=== PATIENT | female | born 1945 | race Two or more races ===

== ENCOUNTER 2016-05-22 14:27 | Emergency (ER) | payer MEDICARE, OTHER ==
[~2016-05-22] VITALS: Ht 175.3 cm; Wt 69.4 kg
[~2016-05-22 14:27] MED LIST: ASPI81TA2 PO; METO-304 PO; SIMV20TA2 PO; TRAM50TA2 PO
[2016-05-22] MEDS ORDERED: IV SET PRIMARY PUMP SET 1 EA INFUS.SET MC ONE (14:52)
[2016-05-22] MEDS ORDERED: IV NS 0.9% 500 ML IV ONE (14:52)
[2016-05-22] MEDS ORDERED: IV NS 0.9% 500 ML BAG IV ONE (15:00)
[2016-05-22 15:04] LABS: BASOPHILS # (AUTO) 0.2 /CMM (0.0-0.2); BASOPHILS % (AUTO) 2.8 % (0.0-2.0); DIFF TOTAL % 100 %; EOSINOPHILS # (AUTO) 0.3 /CMM (0.0-0.7); EOSINOPHILS % (AUTO) 4.2 % (0.0-6.0); HEMATOCRIT 44 % (33-45); HEMOGLOBIN 14.7 g/dL (11.5-14.8); LYMPHOCYTES # (AUTO) 1.5 /CMM (0.8-4.8); LYMPHOCYTES % (AUTO) 22.4 % (20.0-44.0); MEAN CORPUSCULAR HEMOGLOBIN 29 PG (26.0-33.0); MEAN CORPUSCULAR HGB CONC 34 g/dl (31.0-36.0); MEAN CORPUSCULAR VOLUME 85 fL (82-100); MONOCYTES # (AUTO) 0.6 /CMM (0.1-1.30); MONOCYTES % (AUTO) 9.3 % (2.0-12.0); NEUTROPHILS # (AUTO) 4.3 /CMM (1.8-8.9); NEUTROPHILS % (AUTO) 61.3 % (43.0-81.0); PLATELET COUNT (AUTO) 161 /CMM (150-450); RED BLOOD CELL COUNT(AUTO) 5.12 MIL/uL (4.0-5.2); WHITE BLOOD COUNT (AUTO) 6.9 K/uL (4.3-11.0)
[2016-05-22 15:15] LABS: ANION GAP 12 (5-14); CALCIUM, SERUM 9.4 mg/dL (8.5-10.1); CARBON DIOXIDE 28 mmol/L (21-32); CHLORIDE 103 mmol/L (98-107); CREATININE 0.9 mg/dL (0.6-1.3); GFR 62 mL/min (>60); GLUCOSE 78 mg/dL (74-106); POTASSIUM 3.2 mmol/L (3.5-5.1); SODIUM SERUM 140 mmol/L (136-145); UREA NITROGEN, BLOOD 19 mg/dL (7-18)
[2016-05-22 15:24] LABS: INR 1.04 (0.87-1.13); PROTHROMBIN TIME 10.9 SECS (9.5-12.7)
[2016-05-22 15:25] LABS: TROPONIN I < 0.017 ng/mL (0.00-0.056)
[2016-05-22 15:48] LABS: KETONES,URINE Negative (NEGATIVE); LEUKOCYTE ESTERASE ,URINE Negative (NEGATIVE); PH,URINE 6.5 (5.0-8.0)
[2016-05-22 15:50] LABS: ADD UA MICROSCOPIC YES
[2016-05-22 16:12] VITALS: BP 156/78
[2016-05-22 16:32] LABS: ADD URINE CULTURE NO; RBC,URINE 0-2 /HPF (0-2); WBC,URINE 0-2 /HPF (0-3)
[2016-05-22 16:43] LABS: THYROID STIMULATING HORMONE 2.278 uIU/mL (0.358-3.74)
== END 2016-05-22 16:22 | disposition home or self-care (01) ==
LOC: ER 14:30
DX: I16.0 Hypertensive urgency (principal); I10 Essential (primary) hypertension; Z79.82 Long term (current) use of aspirin; R79.1 Abnormal coagulation profile
CPT/HCPCS: 36415; 71010-TC; 80048-TC; 81000-TC; 84443-TC; 84484-TC; 85025-TC; 85730-TC; A4606; J7040; Z7610

== ENCOUNTER 2018-09-01 16:17 | Inpatient (IN) | payer MEDICARE, OTHER ==
[~2018-09-01] VITALS: Ht 154.9 cm; Wt 68.0 kg
[~2018-09-01 16:17] MED LIST changes: +ASPI-1169 PO; -ASPI81TA2 PO; -METO-304 PO; +METO-357 PO
--- NOTE | 2018-09-01 16:35 | NUR ---
PT RIVKA RA 89 "From Home SOB x 1wk", PT AAOX4, HOOKED TO CHIEF ENGINEERING DIVISION AND O2 VIA 2LPM, VS STABLE, KEPT RESTED AND COMFORTABLE, WILL CONTINUE TO MONITOR.
--- NOTE | 2018-09-01 16:40 | NUR ---
SEEN AND EXAMINED BY DR. ATKINS.
--- NOTE | 2018-09-01 17:00 | NUR ---
LABS DRAWNED AND SENT TO LAB.
[2018-09-01 17:25] LABS: BASOPHILS # (AUTO) 0.1 /CMM (0.0-0.2); BASOPHILS % (AUTO) 0.7 % (0.0-2.0); EOSINOPHILS % (AUTO) 5.5 % (0.0-6.0); HEMATOCRIT 38 % (33-45); HEMOGLOBIN 12.8 g/dL (11.5-14.8); LYMPHOCYTES # (AUTO) 1.3 /CMM (0.8-4.8); LYMPHOCYTES % (AUTO) 17.6 % (20.0-44.0); MEAN CORPUSCULAR HGB CONC 34 g/dl (31.0-36.0); MEAN CORPUSCULAR VOLUME 89 fL (82-100); MONOCYTES # (AUTO) 0.7 /CMM (0.1-1.30); MONOCYTES % (AUTO) 9.5 % (2.0-12.0); NEUTROPHILS # (AUTO) 4.8 /CMM (1.8-8.9); NEUTROPHILS % (AUTO) 66.7 % (43.0-81.0); PLATELET COUNT (AUTO) 121 /CMM (150-450); RED BLOOD CELL COUNT(AUTO) 4.22 MIL/uL (4.0-5.2); WHITE BLOOD COUNT (AUTO) 7.2 K/uL (4.3-11.0)
[2018-09-01 17:36] LABS: CALCIUM, SERUM 8.8 mg/dL (8.5-10.1); CARBON DIOXIDE 31 mmol/L (21-32); CHLORIDE 104 mmol/L (98-107); CREATININE 0.9 mg/dL (0.6-1.3); GLUCOSE 106 mg/dL (74-106); POTASSIUM 4.1 mmol/L (3.5-5.1); SODIUM SERUM 140 mmol/L (136-145); UREA NITROGEN, BLOOD 25 mg/dL (7-18)
[2018-09-01 17:49] LABS: ALANINE AMINOTRANSFERASE 22 U/L (12-78); ALBUMIN 3.7 g/dL (3.4-5.0); ALKALINE PHOSPHATASE 100 U/L (46-116); ASPARTATE AMINOTRANSFERASE 21 U/L (15-37); B-TYPE NATRIURETIC PEPTIDE 475 PG/ML (0-125); BILIRUBIN,DIRECT 0.1 mg/dL (0.0-0.2); BILIRUBIN,TOTAL 0.5 mg/dL (0.2-1.0)
--- NOTE | 2018-09-01 17:56 | NUR ---
324-1 CHF EXACERBATION ACCEPTING LUIS CRUZ
[2018-09-01] MEDS ORDERED: NITROGLYCERIN PACKET 1 GM PACKET TD ONE (18:00)
[2018-09-01] MEDS ORDERED: ASPIRIN 81 MG TAB.CHEW PO ONE (18:00)
[2018-09-01] MEDS ORDERED: FUROSEMIDE 40 MG/4 ML VIAL IV ONE (18:00)
[2018-09-01] MEDS ORDERED: NITROGLYCERIN PACKET 1 GM PACKET ONE (18:04)
[2018-09-01] MEDS ORDERED: ASPIRIN 81 MG TAB.CHEW ONE (18:04)
[2018-09-01] MEDS ORDERED: FUROSEMIDE 20 MG/2 ML VIAL ONE ×2 (18:04→18:05)
--- NOTE | 2018-09-01 19:27 | NUR ---
[facility].
[2018-09-01 20:00] VITALS: BP 111/68
--- NOTE | 2018-09-01 20:00 | NUR ---
RESEARCH STAFF MEMBERPRODUCT SAFETY PROFESSIONAL NOTES Admitted a 73yo female for CHF exacerbation. Patient came to unit via gurney, alert, oriented x 4, able to make needs known. Patient is short of breath on exertion, on O2 at 2LPM via nasal cannula. Tele monitor in place- sinus rhythm 69Patient denies smoking, drinking and use of recreational drugs. Patient reports that she uses a cane at home. Skin assessment done- multiple scabs noted due to scratching, pictures attached to chart. Oriented to call light- placed within easy reach. Bed in lowest locked position. Will continue to monitor accordingly.
[2018-09-01] MEDS ORDERED: TRAMADOL HCL 50 MG TABLET PO SCH (23:30)
[2018-09-01] MEDS ORDERED: GABA-534 PO (23:51)
[2018-09-01] MEDS ORDERED: AMLO1CAP8 PO (23:51)
[2018-09-01] MEDS ORDERED: LOSA1TAB9 PO (23:51)
[2018-09-01] MEDS ORDERED: POTA10CA43 PO (23:51)
[2018-09-01] MEDS ORDERED: FURO-144 PO (23:51)
[2018-09-02] VITALS: BP_SYST 108; BP_SYST 111; BP_DIAS 68
[2018-09-02] MEDS: TRAMADOL HCL 50 MG TABLET PO PRN ×2 (00:21→23:39)
--- NOTE | 2018-09-02 00:21 | NUR ---
RN NOTES Patient c/o generalized pain, 11/11. Ultram 50mg PO given as ordered. Will continue to monitor
[2018-09-02] MEDS ORDERED: MAGNESIUM HYDROXIDE 30 ML UDC PO PRN (01:00)
[2018-09-02] MEDS ORDERED: ONDANSETRON HCL/PF 4 MG/2 ML VIAL IVP PRN (01:00)
[2018-09-02] MEDS ORDERED: MAG HYDROX/AL HYDROX/SIMETH 30 ML UDC PO PRN (01:00)
[2018-09-02] MEDS ORDERED: ACETAMINOPHEN 325 MG TABLET PO PRN (01:00)
[2018-09-02] MEDS ORDERED: Z GUARD REMEDY 2 OZ OINT TP PRN (01:00)
[2018-09-02 04:00] VITALS: BP 103/67
--- NOTE | 2018-09-02 06:23 | NUR ---
RESIDENT HALL DIRECTOR CLOSING NOTES Patient resting in bed, alert, oriented x 4. Breathing even and unlabored. Not in any distress. No acute changes overnight. Tele monitor in place- sinus rhythm 65. All needs attended and met. Will endorse HUMBERTO to oncoming RN
[2018-09-02 06:56] LABS: APPEARANCE,URINE CLEAR (CLEAR); BILIRUBIN,URINE NEGATIVE (NEGATIVE); BLOOD, URINE TRACE-INTA Ery/uL (NEGATIVE); COLOR,URINE YELLOW (YELLOW); KETONES,URINE NEGATIVE (NEGATIVE); LEUKOCYTE ESTERASE ,URINE NEGATIVE (NEGATIVE); NITRITE, URINE NEGATIVE (NEGATIVE); PROTEIN,URINE NEGATIVE (NEGATIVE); UGLUCOSE NEGATIVE (NEGATIVE); UROBILINOGEN,URINE 0.2 EU/dL (0.2)
--- NOTE | 2018-09-02 07:30 | NUR ---
MS RN RECEIVED ON BED, AWAKE,ALERT,ORIENTED X4,NOT IN ANY FORM OF DISTRESS, RESPIRATIONS EVEN AND UNLABORED,NO SOB NOTED, LUNGS ARE DIMINISHED, ABDOMEN SOFT,POSITIVE BOWEL SOUNDS,DENIES PAIN AT THIS TIME, WILL MONITOR PATIENT'S CONDITION.
[2018-09-02 07:39] LABS: BACTERIA,URINE Few /HPF (None Seen); CALCIUM OXALATE CRYSTALS,UR Few /HPF (None Seen); WBC,URINE 0-2 /HPF (0-3)
[2018-09-02 07:46] LABS: BASOPHILS % (AUTO) 0.6 % (0.0-2.0); EOSINOPHILS % (AUTO) 5.5 % (0.0-6.0); HEMATOCRIT 36 % (33-45); HEMOGLOBIN 12.3 g/dL (11.5-14.8); LYMPHOCYTES # (AUTO) 1.4 /CMM (0.8-4.8); LYMPHOCYTES % (AUTO) 23.4 % (20.0-44.0); MEAN CORPUSCULAR HGB CONC 34 g/dl (31.0-36.0); MEAN CORPUSCULAR VOLUME 89 fL (82-100); MONOCYTES # (AUTO) 0.7 /CMM (0.1-1.30); MONOCYTES % (AUTO) 10.9 % (2.0-12.0); NEUTROPHILS # (AUTO) 3.6 /CMM (1.8-8.9); NEUTROPHILS % (AUTO) 59.6 % (43.0-81.0); PLATELET COUNT (AUTO) 106 /CMM (150-450); RED BLOOD CELL COUNT(AUTO) 4.04 MIL/uL (4.0-5.2)
[2018-09-02 08:00] VITALS: BP 126/74
[2018-09-02 08:09] LABS: CHOLESTEROL 124 mg/dL (<200); HDL CHOLESTEROL 38 mg/dL (40-60); LDL 76 mg/dL (0-99); TRIGLYCERIDES 73 mg/dL (30-150)
[2018-09-02 08:12] LABS: CALCIUM, SERUM 8.2 mg/dL (8.5-10.1); CARBON DIOXIDE 30 mmol/L (21-32); CHLORIDE 104 mmol/L (98-107); CREATININE 0.8 mg/dL (0.6-1.3); GLUCOSE 87 mg/dL (74-106); MAGNESIUM 2.2 mg/dL (1.8-2.4); PHOSPHORUS 3.3 mg/dL (2.5-4.9); POTASSIUM 3.4 mmol/L (3.5-5.1); SODIUM SERUM 143 mmol/L (136-145); UREA NITROGEN, BLOOD 21 mg/dL (7-18)
[2018-09-02] MEDS: ASPIRIN 81 MG TAB.CHEW PO SCH (08:35)
[2018-09-02] MEDS: LOSARTAN/HCTZ 50-12.5MG/ 1 EA TABLET PO SCH (08:36)
[2018-09-02] MEDS: AMLODIPINE BESYLATE 5 MG TABLET PO SCH (08:36)
[2018-09-02] MEDS: GABAPENTIN 300 MG CAPSULE PO SCH (08:37)
[2018-09-02] MEDS: FUROSEMIDE 40 MG TABLET PO SCH (08:37)
[2018-09-02] MEDS ORDERED: METOPROLOL SUCCINATE 50 MG TAB.SR.24H PO SCH (09:00)
--- NOTE | 2018-09-02 09:10 | NUR ---
ms cage breakfast served,due meds given,tolerated well.
--- NOTE | 2018-09-02 10:07 | NUR ---
WOUND CARE CONSULT: PT IS AMBULATORY AND CONTINENT WITH CURRENT CASSIDY SCORE OF 19. PT HAS DRY SCABS AND SCRATCH LEDESMA ON HER BODY, PRESENT ON ADMISSION. PT STATES THAT SHE PICKS AT HER SKIN. DEFER TO MD FOR PICKING BEHAVIOR. WILL SEE PRN.
[2018-09-02] MEDS ORDERED: POTASSIUM CHLORIDE 20 MEQ TAB.PRT.SR PO SCH (11:00)
--- NOTE | 2018-09-02 11:00 | NUR ---
ms niles was seen by dr. hamilton ferro/ orders made and carried out.
[2018-09-02] MEDS: methylPREDNISolone SOD SUCC 125 MG/2ML VIAL IV SCH ×3 (11:05→21:00)
[2018-09-02] MEDS: ENOXAPARIN SODIUM 40 MG/0.4 ML DISP.SYRIN SQ SCH (11:06)
[2018-09-02] MEDS: IPRATROPIUM NEB FS 0.5 MG/2.5 ML AMPUL.NEB NEB SCH ×3 (11:14→23:28)
[2018-09-02] MEDS: LEVALBUTEROL HCL NEB 1.25 MG/0.5 ML VIAL.NEB IH SCH ×3 (11:14→23:28)
--- NOTE | 2018-09-02 12:00 | NUR ---
Social service consult requested by Lyn Velazquez NP because pt. is elderly and lives alone with limited resources. Pt. is a 73 year old female who was admitted to [facility] for CHF exacerbation. SW met with pt. at bedside. Pt. was sitting up on her bed and is alert and cooperative throughout the assessment. Pt. was oriented x 4. Pt. states that she rents a bedroom in a single-family home from a family located at [address] [place] [address]. Her cell phone number is . Pt. receives SSI benefits of $890 per month and has [employer] insurance. Pt.s emergency contact listed on her face sheet is her son Noble Fiore , but pt. states that he is not very reliable. Pt. denies current alcohol, drugs, and cigarette use. Pt. states she stopped drinking alcohol 10 years ago when it started affecting her health. Pt. denies a history of psychiatric diagnosis, but states that she has experienced some symptoms of depression due to her current living and health situation. Pt. feels lonely and expresses sadness about having to leave her two cats behind once she moves into an assisted living facility. SW assessed for risk of suicide and homicide ideation and pt. responded she has some suicidal ideation at times but pt. does not have a plan to hurt herself or the means to act on these thoughts. Pt. stated, I know I will get through this. At this time, pt. is not a risk to harm self or others. SW encouraged pt. to speak to her primary doctor regarding her depressive symptoms, and pt. agreed. Pt. states that she is not interested in anti-depressive medication but is interested in counseling and talk therapy. LUCERO will provide the following counseling referrals to pt.: [facility] [address] [facility] [place] [address]. and Counseling [phone]. [facility] [id number]. . Pt. also requested spiritual counseling support during her hospital stay, and LUCERO arranged for Rev. Dinah Le from the [facility] [place] [id number] [facility] [place] [address] , to visit pt. for spiritual and emotional support. Pt. would like to speak with Case Management to discuss placement options. SW notified Geospatial Intelligence Analyst Chema with the aforementioned information. No other services are requested at this time. SW is available if needed.
[2018-09-02 16:00] VITALS: BP 117/74
--- NOTE | 2018-09-02 18:53 | NUR ---
ms rn on bed, no distress noted.
--- NOTE | 2018-09-02 19:41 | NUR ---
MS SHIRA INITIAL NOTES RECEIVED REPORT FROM AM NURSE EMANUEL AND CHECKED THE PATIENT . SHE'S AWAKE AND ALERT SITTING IN HER BED WHILE TRYNG TO CALL SOMEONE USING HER CELLPHONE. NO SOB NOTED. RESPIRATION EVEN AND NON-LABORED. NOT IN ANY ACUTE DISTRESS NOTED. RE-ORIENTED HOW TO USED THE CALL LIGHT AND ENCOURAGE HER TO USE IF SHE NEEDS SOME HELP OR NEEDS ASSIST. PT UNDERSTOOD WELL. ON 02 AT 2 LITERS VIA NASAL CANULA. KEPT HER WARM AND COMFORTABLE AT ALL TIMES. PLACE CALL LIGHT AT REACH. WILL CONTINUE MONITORING.
[2018-09-02 20:00] VITALS: BP 118/70
[2018-09-02 20:09] VITALS: BP 118/70
[2018-09-02] MEDS: SIMVASTATIN 20 MG TABLET PO SCH (21:07)
--- NOTE | 2018-09-02 21:40 | NUR ---
MS SHIRA NOTES ROUTINE MEDS GIVEN ORDERED. SNACKS ALSO SERVED. WILL CONTINUE MONITORING. PLACE CALL LIGHT AT REACH.
--- NOTE | 2018-09-02 23:41 | NUR ---
MS SHIRA NOTES PT ON BREATHING TREATMENT AND ASKING FOR PAIN MEDICATION FOR GENERALIZED PAIN. ULTRAM PO GIVEN ORDERED. EDUCATE ABOUT POSSIBLE SIDE EFFECT AND PT UNDERSTOOD WELL. KEPT HER WARM AND COMFORTABLE AT ALL TIMES.
--- NOTE | 2018-09-03 00:48 | NUR ---
MS SHIRA NOTES RE- ASSESSMENT PT RESTING COMFORTABLY IN BED WITHOUT ANY ACUTE DISTRESS NOTED. RESPIRATION EVEN AND NON-LABORED. WILL CONTINUE MONITORING. PLACE CALL LIGHT AT REACH.
[2018-09-03] MEDS: ZOLPIDEM TARTRATE 5 MG TABLET PO PRN ×2 (01:24→21:06)
--- NOTE | 2018-09-03 01:26 | NUR ---
ms director cost notes pt woke up and asking some crackers and milk she stated she's hungry and needs sleep medication. Ambien 5 mg po given as well her crackers and milk . she 's aware that she needs to watch her fluids and possible side effect of sleep medication. bed alarm set for pt safety. will continue monitoring.
--- NOTE | 2018-09-03 03:00 | NUR ---
MS SHIRA NOTES PT ASLEEP AFTER SLEEP MEDS GIVEN NO SIGNS OF ANY DISTRESS NOTED. KEPT HER WARM AND COMFORTABLE AT ALL TIMES. WILL CONTINUE MONITORING. PLACE CALL LIGHT AT REACH.
--- NOTE | 2018-09-03 05:00 | NUR ---
MS SHIRA NOTES PT WOKE UP AND USED THE BEDSIDE COMODE THEN ACCIDENTALLY IV LINE PULLED OUT . NO BLEEDING NOTED. PT STATED SHE'S HARD STICK SO WE USED THE ACCU-VEIN TO RE INSERTED A NEW ONE THAT PLACE ON HER RIGHT THUMB GAUGE 24 SECURED WITH TAPE . ROUTINE MEDS ALSO GIVEN ORDERED. WILL CONTINUE MONITORING. PLACE CALL LIGHT AT REACH.
[2018-09-03] MEDS: methylPREDNISolone SOD SUCC 125 MG/2ML VIAL IV SCH ×3 (05:25→21:22)
[2018-09-03 06:34] LABS: CALCIUM, SERUM 8.9 mg/dL (8.5-10.1); CARBON DIOXIDE 31 mmol/L (21-32); CHLORIDE 103 mmol/L (98-107); CREATININE 0.9 mg/dL (0.6-1.3); GLUCOSE 204 mg/dL (74-106); POTASSIUM 3.6 mmol/L (3.5-5.1); SODIUM SERUM 143 mmol/L (136-145); UREA NITROGEN, BLOOD 23 mg/dL (7-18)
[2018-09-03] MEDS: LEVALBUTEROL HCL NEB 1.25 MG/0.5 ML VIAL.NEB IH SCH ×3 (07:51→23:22)
[2018-09-03] MEDS: IPRATROPIUM NEB FS 0.5 MG/2.5 ML AMPUL.NEB NEB SCH ×3 (07:51→23:22)
[2018-09-03 08:00] VITALS: BP 128/88
--- NOTE | 2018-09-03 08:00 | NUR ---
ms rn received on bed, awake,alert,oriented x4,not in any form of distress,respirations even and unlabored,no sob noted, lungs are clear,abdomen soft,positive bowel sounds, denies pain at this time, will monitor patient's condition.
[2018-09-03 08:36] LABS: ABG BASE EXCESS 1.1 mmol/L; ABG OXYGEN SATURATION 95.8 % (92.0-98.5); ABG PCO2 41.4 mmHg (35.0-45.0); ABG PH 7.413 (7.350-7.450); ABG PO2 85.9 mmHg (75.0-100.0); AaDO2 14.3 mmHg; COHb 0.8 % (0.5-1.5); MetHb 0.6 % (0.0-1.5); O2Hb 94.5 % (94.0-97.0); SITE, ABG Right Brachial; VENT MODE, BG room air
[2018-09-03] MEDS: AMLODIPINE BESYLATE 5 MG TABLET PO SCH (08:53)
[2018-09-03] MEDS: GABAPENTIN 300 MG CAPSULE PO SCH (08:53)
[2018-09-03] MEDS: FUROSEMIDE 40 MG TABLET PO SCH (08:53)
[2018-09-03] MEDS: ASPIRIN 81 MG TAB.CHEW PO SCH (08:53)
[2018-09-03] MEDS: ENOXAPARIN SODIUM 40 MG/0.4 ML DISP.SYRIN SQ SCH (08:54)
[2018-09-03] MEDS: LOSARTAN/HCTZ 50-12.5MG/ 1 EA TABLET PO SCH (08:57)
--- NOTE | 2018-09-03 09:30 | NUR ---
ms cage breakfast served,due meds given,tolerated well.
[2018-09-03 10:04] LABS: BASOPHILS % (AUTO) 0.1 % (0.0-2.0); HEMATOCRIT 39 % (33-45); HEMOGLOBIN 13.3 g/dL (11.5-14.8); LYMPHOCYTES # (AUTO) 0.6 /CMM (0.8-4.8); LYMPHOCYTES % (AUTO) 8.2 % (20.0-44.0); MEAN CORPUSCULAR HGB CONC 34 g/dl (31.0-36.0); MEAN CORPUSCULAR VOLUME 88 fL (82-100); MONOCYTES # (AUTO) 0.3 /CMM (0.1-1.30); MONOCYTES % (AUTO) 3.3 % (2.0-12.0); NEUTROPHILS # (AUTO) 6.6 /CMM (1.8-8.9); NEUTROPHILS % (AUTO) 88.4 % (43.0-81.0); PLATELET COUNT (AUTO) 105 /CMM (150-450); WHITE BLOOD COUNT (AUTO) 7.5 K/uL (4.3-11.0)
--- NOTE | 2018-09-03 11:00 | NUR ---
ms niles was seen by karolina chan w/ orders made and carried out.
[2018-09-03 16:00] VITALS: BP 129/85
--- NOTE | 2018-09-03 19:00 | NUR ---
ms rn patient on bed,spoke w/ heel caser, for dc plan in am.
--- NOTE | 2018-09-03 19:30 | NUR ---
MS SHIRA INITIAL NOTES RECEIVED REPORT FROM AM NURSE AND CHECKED PT IN BED AWAKE AND ALERT WATCHING TV AT THIS TIME. NEW IV LINE INSERTED ON HER LEFT HAND GAUGE 22 .NO SIGNS OF ANY SOB NOTED NOT IN ANY ACUTE DISTRESS NOTED. PT ASKING FOR HER SLEEP MEDICATION BY 9PM. DENIES ANY PAIN OR ANY DISCOMFORT. KEPT HER WARM AND COMFORTABLE AT ALL TIMES,. PLACE CALL LIGHT AT REACH. WILL CONTINUE MONITORING.
[2018-09-03 20:00] VITALS: BP 131/81
[2018-09-03] MEDS: SIMVASTATIN 20 MG TABLET PO SCH (21:06)
--- NOTE | 2018-09-03 21:30 | NUR ---
MS SECURITY CLERK NOTES ROUTINE MEDS GIVEN WELL HER SLEEP MEDICATION PER PT REQUESTED. LIGHT SNACKS ALSO SERVED. EDUCATE PT FOR POSSIBLE SIDE EFFECT OF HER SLEEP MEDICATION AND PT AWARE AND UNDERSTOOD WELL. KEPT HER WARM AND COMFORTABLE AT ALL TIMES. BED IN LOW AND LOCK IN POSITION. PLACE CALL LIGHT AT REACH. WILL CONTINUE MONITORING.
--- NOTE | 2018-09-03 23:57 | NUR ---
RT NOTE PT CHARTING DOES NOT LOAD. TRIED MANY TIMES WITH DIFFERENT COMPUTERS. PT BREATHING TX GIVEN AT 2325, SPO2 89% HR 88. PT WAS FOUND WITHOUT OXYGEN ON AND WHEEZING. PT TOOK OF THE TX 5 MINUTES LATER CLAIMING IT GIVES HER A SORE THROAT. SHE WAS PLACED BACK ON HER NC 2L. PT IS STILL WHEEZING. RN AWARE.
--- NOTE | 2018-09-04 | NUR ---
MS SODA WORKER NOTES PT SLEEPING COMFORTABLY IN BED WITHOUT ANY ACUTE DISTRESS NOTED. BREATHING EVEN AND NON-LABORED. KEPT HER WARM AND COMFORTABLE AT ALL TIMES. WILL CONTINUE MONITORING. PLACE CALL LIGHT AT REACH.
--- NOTE | 2018-09-04 02:00 | NUR ---
MS TECHNICAL ACCOUNT MANAGER NOTES PT REMAIN ASLEEP.
--- NOTE | 2018-09-04 05:00 | NUR ---
MS INSULATOR TECHNICIAN NOTES PT WOKE UP AND ASKING FOR SOME JELO AND JUICE. . PT DENIES ANY PAIN OR ANY DISCOMFORT. JELO AND JUICE SERVED. SOLUMEDROL WILL ADMINISTERED BY ANOTHER NURSE ORDERED LORNA IVP.
[2018-09-04] MEDS: methylPREDNISolone SOD SUCC 125 MG/2ML VIAL IV SCH ×2 (05:40→13:00)
--- NOTE | 2018-09-04 07:04 | NUR ---
MS JANITOR SUPERVISOR CLOSING NOTES PT REMAINS RESTING IN BED AWAKE AND ALERT , STABLE LORNA THE NIGHT AND SLEPT WELL. NO SIGNS OF ANY DISTRESS NOTED. ALL DUE MEDS GIVEN AND ALL NEEDS MET. KEPT HER WARM AND COMFORTABLE AT ALL TIMES. STILL WITH 02 AT 2 LITERS VIA NASAL CANULA. ON SEMI FOWLERS POSITION WITH SIDE RAILS X2 UP . PLACE CALL LIGHT AT REACH. WILL ENDORSE TO AM NURSE FOR CONTINUITY OF CARE.
--- NOTE | 2018-09-04 07:20 | NUR ---
MS/RN OPENING NOTE THE PATIENT ALERT AND ORIENTED X4. RECEIVING OXYGEN AT 2L/MIN VIA NASAL CANNULA AND DENIES SOB. RESPIRATION REGULAR AND UNLABORED. DENIES PAIN. THE PATIENT IS IN NO APPARENT DISTRESS. LEFT HAND G 22 PATENT AND SALINE LOCKED. BED LOW AND LOCKED. SIDE RAILS UP X3. CALL LIGHT WITHIN REACH. WILL CONTINUE TO MONITOR.
[2018-09-04] MEDS: LEVALBUTEROL HCL NEB 1.25 MG/0.5 ML VIAL.NEB IH SCH (08:01)
[2018-09-04] MEDS: IPRATROPIUM NEB FS 0.5 MG/2.5 ML AMPUL.NEB NEB SCH (08:01)
[2018-09-04 08:11] VITALS: BP 134/84
[2018-09-04] MEDS: ASPIRIN 81 MG TAB.CHEW PO SCH (08:18)
[2018-09-04] MEDS: GABAPENTIN 300 MG CAPSULE PO SCH (08:18)
[2018-09-04] MEDS: AMLODIPINE BESYLATE 5 MG TABLET PO SCH (08:19)
[2018-09-04] MEDS: FUROSEMIDE 40 MG TABLET PO SCH (08:19)
[2018-09-04] MEDS: TRAMADOL HCL 50 MG TABLET PO PRN (08:19)
[2018-09-04] MEDS: ENOXAPARIN SODIUM 40 MG/0.4 ML DISP.SYRIN SQ SCH (08:28)
[2018-09-04 09:00] VITALS: BP 109/64
[2018-09-04] MEDS: LOSARTAN/HCTZ 50-12.5MG/ 1 EA TABLET PO SCH (09:00)
[2018-09-04] MEDS ORDERED: PRED50TA PO (10:37)
[2018-09-04] MEDS ORDERED: LEVA1.2524 IH (10:37)
[2018-09-04] MEDS ORDERED: IPRA0.2S9 NEB (10:37)
--- NOTE | 2018-09-04 13:30 | NUR ---
MS/RN NOTE PATIENT ALERT AND ORIENTED X4. RECEIVING OXYGEN AT 2L/MIN AND DENIES SOB. RESPIRATION REGULAR AND UNLABORED. DENIES PAIN. DISCHARGE EDUCATION PROVIDED AND THE PATIENT VERBALIZED UNDERSTANDING. THE PATIENT IS GETTING PICKED UP BY [facility]. THE PATIENT IS IN STABLE CONDITION.
== END 2018-09-04 13:35 | DRG 291 ==
LOC: ER 16:18 → TELE 18:51 → MED 09-02 10:33
PROVIDERS: ADMIT Nurse Practitioner Acute Care; ATTEND Nurse Practitioner Acute Care
DX: I11.0 Hypertensive heart disease with heart failure (principal); J96.01 Acute respiratory failure with hypoxia; D68.59 Other primary thrombophilia; J45.901 Unspecified asthma with (acute) exacerbation; I27.20 Pulmonary hypertension, unspecified; I50.33 Acute on chronic diastolic (congestive) heart failure; G89.4 Chronic pain syndrome; E78.5 Hyperlipidemia, unspecified; E66.9 Obesity, unspecified; J45.909 Unspecified asthma, uncomplicated; Z79.82 Long term (current) use of aspirin; Z87.891 Personal history of nicotine dependence; Z95.1 Presence of aortocoronary bypass graft; Z95.2 Presence of prosthetic heart valve; Z68.28 Body mass index [BMI] 28.0-28.9, adult; D64.9 Anemia, unspecified; K74.60 Unspecified cirrhosis of liver
CPT/HCPCS: 36415; 36600; 71045-TC; 71250-TC; 80048-TC; 80061-TC; 80076-TC; 81000-TC; 82728-TC; 82803-TC; 83540-TC; 83735-TC; 83880; 84100-TC; 84439-TC; 84443-TC; 84484-TC; 85025-TC; 85730-TC; 87081-TC; 93307-TC; 93970-TC; 94799-TC; 97116-TC; 97530-TC; G0378; J1650; J1940; J2930

== ENCOUNTER 2018-10-15 13:00 | Outpatient (CLI) | payer MEDICARE, OTHER ==
[~2018-10-15 13:00] MED LIST changes: +AMLO1CAP8 PO; +FURO-144 PO; +GABA-534 PO; +IPRA0.2S9 NEB; +LEVA1.2524 IH; +LOSA1TAB9 PO; +POTA10CA43 PO; +PRED50TA PO
== END 2018-10-15 23:59 | disposition home or self-care (01) ==
LOC: WOU 13:00
PROVIDERS: ATTEND Surgery
DX: Z51.89 Encounter for other specified aftercare (principal); R26.81 Unsteadiness on feet; G89.4 Chronic pain syndrome; E66.9 Obesity, unspecified; Z68.32 Body mass index [BMI] 32.0-32.9, adult; I11.0 Hypertensive heart disease with heart failure; I50.9 Heart failure, unspecified; Z79.899 Other long term (current) drug therapy
CPT/HCPCS: G0463

== ENCOUNTER 2019-02-19 03:28 | Inpatient (IN) | payer MEDICARE, OTHER ==
[~2019-02-19] VITALS: Ht 162.6 cm; Wt 76.2 kg
[~2019-02-19 03:28] MED LIST changes: -AMLO1CAP8 PO; +AMLO1CAP92 PO
[2019-02-19 04:10] LABS: BASOPHILS % (AUTO) 0.5 % (0.0-2.0); EOSINOPHILS % (AUTO) 3.3 % (0.0-6.0); HEMATOCRIT 39 % (33-45); HEMOGLOBIN 12.7 g/dL (11.5-14.8); LYMPHOCYTES # (AUTO) 1.3 /CMM (0.8-4.8); LYMPHOCYTES % (AUTO) 21.2 % (20.0-44.0); MEAN CORPUSCULAR HGB CONC 33 g/dl (31.0-36.0); MEAN CORPUSCULAR VOLUME 93 fL (82-100); MONOCYTES # (AUTO) 0.5 /CMM (0.1-1.30); MONOCYTES % (AUTO) 8.9 % (2.0-12.0); NEUTROPHILS % (AUTO) 66.1 % (43.0-81.0); PLATELET COUNT (AUTO) 206 /CMM (150-450); RED BLOOD CELL COUNT(AUTO) 4.17 MIL/uL (4.0-5.2)
[2019-02-19 04:14] LABS: CALCIUM, SERUM 8.9 mg/dL (8.5-10.1); CARBON DIOXIDE 31 mmol/L (21-32); CHLORIDE 106 mmol/L (98-107); CREATININE 0.7 mg/dL (0.6-1.3); GLUCOSE 105 mg/dL (74-106); POTASSIUM 3.1 mmol/L (3.5-5.1); SODIUM SERUM 144 mmol/L (136-145); UREA NITROGEN, BLOOD 17 mg/dL (7-18)
--- NOTE | 2019-02-19 04:16 | NUR ---
[facility]. TO ER BED 6. AAOX3. NO RESP DISTRESS NOTED. BROUGHT IN FOR PSYCH EVAL. PER PA REPORT, PT WAS VERBALLY AGGRESSIVE AT THE FACILITY AND TRIES TO LEAVE. PER PA, PT DOES NOT LIKE IT THERE. PA ALSO REPORTS THAT PAIN IS HAVING GEN BODY PAIN, UPON ASKING PT SHE STATES THAT SHE HAS BEEN HAVING PAIN FOR A LONG TIME. MD WAS AT BEDSIDE FOR EVAL ORDERS RECEIVED AND NOTED. BLOOD DRAWN BY TECH. URINE COLLECTED AND SENT TO LAB
[2019-02-19 04:26] LABS: ALANINE AMINOTRANSFERASE 22 U/L (12-78); ALBUMIN 2.7 g/dL (3.4-5.0); ALCOHOL, BLOOD < 3 mg/dL (0-0); ALKALINE PHOSPHATASE 123 U/L (46-116); ASPARTATE AMINOTRANSFERASE 25 U/L (15-37); BILIRUBIN,DIRECT 0.3 mg/dL (0.0-0.2); BILIRUBIN,TOTAL 0.9 mg/dL (0.2-1.0); TOTAL PROTEIN, SERUM 6.3 g/dL (6.4-8.2)
[2019-02-19 04:32] LABS: SALICYLATE < 0.2 mg/dL (2.8-20.0)
[2019-02-19 04:33] LABS: ACETAMINOPHEN 0 ug/ml (10-30)
[2019-02-19 04:33] LABS: APPEARANCE,URINE Clear (CLEAR); BILIRUBIN,URINE SMALL (NEGATIVE); BLOOD, URINE Trace-intact Ery/uL (NEGATIVE); COLOR,URINE Dark (YELLOW); KETONES,URINE Negative (NEGATIVE); LEUKOCYTE ESTERASE ,URINE Small (NEGATIVE); NITRITE, URINE Negative (NEGATIVE); PROTEIN,URINE 30 mg/dl (NEGATIVE); UGLUCOSE Negative (NEGATIVE)
--- NOTE | 2019-02-19 04:52 | NUR ---
ART ON THE WAY FOR EVAL
[2019-02-19 05:04] LABS: BACTERIA,URINE Many /HPF (None Seen); SQUAMOUS EPITHELIAL CELL,UR Moderate /HPF (None Seen); WBC,URINE TOO NUMEROUS TO COUN /HPF (0-3)
--- NOTE | 2019-02-19 06:05 | NUR ---
NOTED PT HR IN 130'S. MADE AWARE, RECEIVED ORDER TO DO EKG.
[2019-02-19] MEDS ORDERED: CEFTRIAXONE 1GM BAG (ER ONLY) 50 ML IV ONE ×2 (06:22→06:30)
[2019-02-19] MEDS ORDERED: METOPROLOL TARTRATE 50 MG TABLET ONE (06:23)
[2019-02-19] MEDS ORDERED: ASPIRIN EC 81 MG TABLET.DR PO ONE (06:30)
[2019-02-19] MEDS ORDERED: FUROSEMIDE 40 MG/4 ML VIAL IV ONE (06:30)
[2019-02-19] MEDS ORDERED: METOPROLOL TARTRATE 50 MG TABLET PO ONE (06:30)
[2019-02-19] MEDS ORDERED: IV NS 0.9% 1,000 ML BAG IV ONE (06:30)
[2019-02-19] MEDS ORDERED: ASPIRIN 81 MG TAB.CHEW ONE (06:52)
[2019-02-19] MEDS ORDERED: POTASSIUM CHLORIDE 20 MEQ TAB.PRT.SR PO ONE ×2 (06:52→07:00)
[2019-02-19] MEDS ORDERED: FUROSEMIDE 40 MG/4 ML VIAL ONE (06:52)
--- NOTE | 2019-02-19 07:13 | NUR ---
REPORT GIVEN TO ARA CHEN.
--- NOTE | 2019-02-19 07:37 | NUR ---
PAGED ANDREA FOR ADMISSION
--- NOTE | 2019-02-19 08:32 | NUR ---
REPORT GIVEN TO CASEY CHEN FOR HUMBERTO.
[2019-02-19] MEDS ORDERED: MULT-439 PO (08:57)
[2019-02-19] MEDS ORDERED: IPRA3AMP23 IH (08:57)
[2019-02-19] MEDS ORDERED: NEUTRA-PHOS PO (08:57)
[2019-02-19] MEDS ORDERED: PANT40TA2 PO (08:57)
[2019-02-19] MEDS ORDERED: PROT946L PO (08:57)
[2019-02-19] MEDS ORDERED: MAG30ORA PO (08:57)
[2019-02-19] MEDS ORDERED: DICL100G16 TP (08:57)
[2019-02-19] MEDS ORDERED: RIFA200T2 PO (08:57)
[2019-02-19 09:15] VITALS: BP 131/91
--- NOTE | 2019-02-19 09:15 | NUR ---
TRANSFERRED TO ROOM 115-1 VIA ACLS PROTOCOL. NO DISTRESS NOTED.
--- NOTE | 2019-02-19 09:20 | NUR ---
BANK WORKER NOTE PATIENT CAME IN VIA GURNEY. ALERT AND ORIENTED X3. C/C WAS BEING AGGRESSIVE AND TRYING TO LEAVE [facility]. PER ER NURSE, PATIENT WAS TACHYCARDIC AND THEY DID AN EKG. EKG SHOWED NEW ONSET OF AFIB. PATIENT CONNECTED TO OUR TELE MONITOR, AFIB AT 102. PATIENT HAS NO COMPLAINS OF ANY PAIN NOR SOB AT THIS TIME. SHE IS ON ROOM AIR. PER PATIENT, SHE CAN WALK BUT WITH ASSISTANCE. HAS A LEFT HAND #22 SALINE LOCKED. K DUR WAS GIVEN TO REPLACE K OF 3.2 IN ER. WAITING FOR ADMITTING ORDERS FROM ANDREA MOSES DNP. BED LOCKED AND IN LOWEST POSITION. SITTER AT BEDSIDE.CALL LIGHT WITHIN REACH. WILL CONTINUE TO MONITOR
[2019-02-19] MEDS ORDERED: ZOLPIDEM TARTRATE 5 MG TABLET PO PRN (11:00)
[2019-02-19] MEDS ORDERED: MAGNESIUM HYDROXIDE 30 ML UDC PO PRN (11:00)
[2019-02-19] MEDS ORDERED: Z GUARD REMEDY 2 OZ OINT TP PRN (11:00)
[2019-02-19] MEDS ORDERED: MAG HYDROX/AL HYDROX/SIMETH 30 ML UDC PO PRN (11:00)
[2019-02-19] MEDS ORDERED: ACETAMINOPHEN 325 MG TABLET PO PRN (11:00)
[2019-02-19] MEDS ORDERED: ONDANSETRON HCL/PF 4 MG/2 ML VIAL IVP PRN (11:00)
[2019-02-19] MEDS: ENOXAPARIN SODIUM 40 MG/0.4 ML DISP.SYRIN SQ SCH (11:46)
[2019-02-19 12:00] VITALS: BP 138/82
--- NOTE | 2019-02-19 13:01 | NUR ---
RN NOTE PAGED DR MASON REGARDING THE NEW ADMISSION [address] MASON, DR GRAVES IS COVERING FOR HIM TODAY. PAGED DR GRAVES, PER HE DID HIS ROUNDS IN THE AM AND ASKED ME TO CALL [facility] TO LET THE WEEKEND PSYCH DOCTOR TO MAKE SURE TO DO ROUNDS ON THIS PATIENT. CALLED [facility] TO LET THEM KNOW, TALKED TO
[2019-02-19 16:00] VITALS: BP 124/99
[2019-02-19] MEDS: HYDROCODONE/APAP 5/325MG 1 EACH TABLET PO PRN ×2 (16:55→21:18)
[2019-02-19] MEDS: K PHOS NEUTRAL 250 MG TABLET PO SCH (17:26)
[2019-02-19] MEDS: PROSOURCE / PROSTAT (PYXIS) 30 ML UDC PO SCH (17:26)
--- NOTE | 2019-02-19 18:41 | NUR ---
RN CLOSING NOTE PATIENT IN BED, SITTER AT BEDSIDE. HAD A COMPLAIN OF GENERALIZED PAIN, WAS GIVEN NORCO. PATIENT ATE DINNER. ON ROOM AIR, NO SOB NOTED. PATIENT STILL ON AFIB, ANDREA AWARE. PATIENT HAS LOVENOX AND METROPOLOL. CARDIAC CONSULT STILL PENDING. HAS A LEFT HAND #22 SALINE LOCKED. BED LOCKED AND IN LOWEST POSITION. CALL LIGHT WITHIN REACH. WILL ENDORSE TO NOC SHIFT FOR HUMBERTO
[2019-02-19 20:00] VITALS: BP 129/98
[2019-02-19] MEDS: METOPROLOL TARTRATE 25 MG TABLET PO SCH (20:08)
--- NOTE | 2019-02-19 20:49 | NUR ---
RECORDER HELPER GRAVITY PROSPECTING NOTES RECEIVED PT ON BED. A/O X3. ON ROOM AIR NO RESPIRATORY DISTRESS NOTED. ON TELE MONITOR AFIB 106. IV ACCESS ON LEFT HAND G 22 SL. WITH 1 TO 1 SITTER. HEAD OF BED ELEVATED. SIDE RAILS UP. CALL LIGHT WITHIN REACH. BED ALARM ON. WILL MONITOR PT CLOSELY.
[2019-02-19] MEDS ORDERED: DICLOFENAC TOPICAL 100 GM GEL..GM. TP SCH ×2 (21:00)
[2019-02-20] VITALS (8 sets, daily range): BP systolic 113–149; BP diastolic 77–108
--- NOTE | 2019-02-20 04:02 | NUR ---
DURABLE MEDICAL EQUIPMENT REPAIRER NOTES BED BATH DONE. PT AGITATED, RESTLESS AND SHOUTING. SITTER AT BEDSIDE.
--- NOTE | 2019-02-20 05:33 | NUR ---
WORD PROCESSOR NOTES 0500 PT PULLED OUT IV ACCESS. RN TRIED INSERTING ANOTHER ACCESS , PT REFUSED, VERY AGITATED AND RESTLESS. CHARGE NURSE INFORMED. 0510 CALLED PHARMACY REGARDING ROCEPHIN AT AM AND AWAITING MIDLINE ORDER.
--- NOTE | 2019-02-20 06:47 | NUR ---
PIPER INSTALLER NOTES MULTIPLE BLOOD DRAW ATTEMPTS PER WEIGHT CLERK. WILL F/U IN AM ONCE PT HAS MIDLINE.
[2019-02-20] MEDS: CEFTRIAXONE 1 G in IV D5W 50 ML IV SCH (07:00)
--- NOTE | 2019-02-20 07:00 | NUR ---
REGULATORY ATTORNEY NOTES ROCEPHIN IV NOT GIVEN, AWAITING MIDLINE.
--- NOTE | 2019-02-20 07:05 | NUR ---
UNABLE TO ADMINISTER ROCEPHIN AT 0700 BECAUSE NO IV SITE IS AVAILABLE. WAITING FOR MIDLINE INSERTION
--- NOTE | 2019-02-20 07:11 | NUR ---
RESEARCH CHIEF ENGINEER NOTES NO ACUTE CHANGES NOTED DURING THE SHIFT. NO RESPIRATORY DISTRESS NOTED. WILL ENDORSE TO THE AM NURSE FOR CONTINUITY OF CARE.
--- NOTE | 2019-02-20 07:35 | NUR ---
RN OPENING NOTES RECEIVED PATIENT AWAKE AND ALERT RESTING IN BED COMFORTABLY. SHE IS AOX3, VERBAL, AND ON BEDREST. TELE MONITOR SHOWING UNCONTROLLED AFIB AT 120 BPM. SHE IS ON RA, TOLERATING WELL, SHOWS NO S/SX OF RESP DISTRESS OR SOB, CHEST RISES AND FALLS EVENLY. PT HAS NO IV SITE, REMOVED BY PT LAST NIGHT, AWAITING MIDLINE INSERTION. SHE IS ON CARDIAC DIET. SAFETY MEASURES HAVE BEEN IMPLEMENTED, CALL LIGHT IS WITHIN REACH, BED IS IN LOWEST AND LOCKED POSITION, SIDE RAILS UP X2, WILL CONTINUE TO MONITOR FOR ANY CHANGES.
[2019-02-20] MEDS: PANTOPRAZOLE 40 MG TABLET.DR PO SCH (07:58)
[2019-02-20] MEDS: MULTIVIT W/MINERALS 1 TAB TABLET PO SCH (08:45)
[2019-02-20] MEDS: FUROSEMIDE 40 MG TABLET PO SCH (08:45)
[2019-02-20] MEDS: K PHOS NEUTRAL 250 MG TABLET PO SCH ×2 (08:45→17:16)
[2019-02-20] MEDS: GABAPENTIN 300 MG CAPSULE PO SCH (08:45)
[2019-02-20] MEDS: PROSOURCE / PROSTAT (PYXIS) 30 ML UDC PO SCH ×2 (08:50→17:16)
[2019-02-20] MEDS: METOPROLOL TARTRATE 25 MG TABLET PO SCH ×4 (08:50→17:19)
[2019-02-20] MEDS ORDERED: ASPIRIN 81 MG TAB.CHEW PO SCH (09:00)
[2019-02-20] MEDS ORDERED: PANTOPRAZOLE 40 MG TABLET.DR PO SCH (09:00)
[2019-02-20] MEDS: HYDROCODONE/APAP 5/325MG 1 EACH TABLET PO PRN (09:33)
[2019-02-20 10:25] LABS: BASOPHILS % (AUTO) 0.7 % (0.0-2.0); EOSINOPHILS % (AUTO) 0.3 % (0.0-6.0); HEMATOCRIT 39 % (33-45); HEMOGLOBIN 12.3 g/dL (11.5-14.8); LYMPHOCYTES # (AUTO) 0.8 /CMM (0.8-4.8); LYMPHOCYTES % (AUTO) 12.6 % (20.0-44.0); MEAN CORPUSCULAR HGB CONC 32 g/dl (31.0-36.0); MEAN CORPUSCULAR VOLUME 94 fL (82-100); MONOCYTES # (AUTO) 0.4 /CMM (0.1-1.30); MONOCYTES % (AUTO) 6.5 % (2.0-12.0); NEUTROPHILS # (AUTO) 5.3 /CMM (1.8-8.9); NEUTROPHILS % (AUTO) 79.9 % (43.0-81.0); PLATELET COUNT (AUTO) 206 /CMM (150-450); RED BLOOD CELL COUNT(AUTO) 4.12 MIL/uL (4.0-5.2); WHITE BLOOD COUNT (AUTO) 6.6 K/uL (4.3-11.0)
[2019-02-20 10:52] LABS: ALBUMIN 2.9 g/dL (3.4-5.0); BILIRUBIN,TOTAL 1.1 mg/dL (0.2-1.0); CALCIUM, SERUM 9.1 mg/dL (8.5-10.1); CREATININE 0.8 mg/dL (0.6-1.3); MAGNESIUM 1.8 mg/dL (1.8-2.4); PHOSPHORUS 4.2 mg/dL (2.5-4.9); POTASSIUM 3.5 mmol/L (3.5-5.1); THYROID STIMULATING HORMONE 21.964 uIU/mL (0.358-3.74); TOTAL PROTEIN, SERUM 6.2 g/dL (6.4-8.2)
[2019-02-20] MEDS: ENOXAPARIN SODIUM 40 MG/0.4 ML DISP.SYRIN SQ SCH (10:57)
[2019-02-20] MEDS ORDERED: LIDOCAINE 1% INJ 50 ML MDV IJ STA (12:41)
[2019-02-20] MEDS: WARFARIN SODIUM 5 MG TABLET PO SCH (17:18)
--- NOTE | 2019-02-20 19:04 | NUR ---
RN CLOSING NOTES PATIENT IS RESTING IN BED COMFORTABLY AT THIS TIME, DENIES ANY PAIN OR DISCOMFORT. NO ACUTE CHANGES OCCURRED THROUGHOUT THE SHIFT, VITAL SIGNS STABLE, PT NEEDS HAVE BEEN MET. PATIENT TOLERATING RA WELL, CHEST RISES AND FALLS EVENLY. BAT BOY/GIRL AT BEDSIDE. SAFETY MEASURES HAVE BEEN IMPLEMENTED, CALL LIGHT IS WITHIN REACH, BED IS IN LOWEST AND LOCKED POSITION, SIDE RAILS UP X2, PT HAS BEEN ENDORSED TO NIGHTSHIFT RN FOR CONTINUITY OF CARE.
--- NOTE | 2019-02-20 19:10 | NUR ---
rn initial notes: received report from day rn , pt on 1:1 sitter, per report on 5150 hold which will on 02/22/19 at 0525am. pt awaiting to be seen by dr clark for psych eval. pt a/o x3 with periodic episode of confusion, emotional, wants morphine, but per son do not give any iv pain meds as pt was on high doses of iv narcotics which make the pt hallucinate and confused. pt on tele afib uncontrolled hr 112. pt has ericka midline, s/p insertion today. safety precautions for fall initiated, call light in reach, will continue monitoring pt.
[2019-02-20] MEDS ORDERED: VANCOMYCIN 500 MG VIAL ONE (22:10)
[2019-02-20] MEDS ORDERED: PIPERACILLIN /TAZOBACTAM 3.375 G VIAL IV ONE (22:10)
--- NOTE | 2019-02-20 22:47 | NUR ---
rn notes: recheck pt's bp, rigth arm, rsult is 142/103, hr 113. recheck on left arm, reading is 113/108, hr 110. pt c/o generalized pain, offered norco, but pt refused, stated she wants morphine. son has instructions not to give any iv pain meds as pt received high doses of pain meds in another hospital which makes the pt hallucinate and become confused. relayed situation to md managing partner digital content marketing [place], per md t/o to give hydralazine 10 mg po once now. t/o read back, verified, and carried out.
[2019-02-20] MEDS ORDERED: hydrALAZINE HCL 10 MG TABLET PO ONE (23:00)
[2019-02-21] VITALS (8 sets, daily range): BP systolic 125–152; BP diastolic 51–101
[2019-02-21] MEDS: METOPROLOL TARTRATE 25 MG TABLET PO SCH ×4 (00:03→17:26)
--- NOTE | 2019-02-21 00:43 | NUR ---
rn notes: per dr clark, nobody told him about psych consult, but will see the pt in am.
[2019-02-21] MEDS: HYDROCODONE/APAP 5/325MG 1 EACH TABLET PO PRN ×2 (01:18→21:00)
--- NOTE | 2019-02-21 01:18 | NUR ---
prn norco: pt requesting for norco, c/o generalized pain 11/11, prn norco administered at this time, will continue to monitor and reassess pt
[2019-02-21] MEDS: CEFTRIAXONE 1 G in IV D5W 50 ML IV SCH (06:08)
--- NOTE | 2019-02-21 06:48 | NUR ---
RN CLOSING NOTES: PT IN BED, REMAINS EMOTIONAL, DENIES ANY PLAN OF HURTING HERSELF. SITTER AT BED SIDE. IV ACCESS REMAINS PATENT AND FLUSHING WELL, INFUSING WITH ROCEPHIN IV ATB ORDERED. AWAITING TO BE SEEN BY BOB MILLAN. 5150 HOLD WILL ON 02/22/19 AT 0525AM. VS REMAINS STABLE, NEEDS ATTENDED. SAFETY PRECAUTIONS FOR FALL REMAINS ENGAGED, CALL LIGHT IN REACH, WILL ENDORSE TO DAY RN FOR CONTINUITY OF CARE.
[2019-02-21 07:11] LABS: BASOPHILS # (AUTO) 0.1 /CMM (0.0-0.2); BASOPHILS % (AUTO) 1.2 % (0.0-2.0); HEMATOCRIT 37 % (33-45); LYMPHOCYTES # (AUTO) 1.3 /CMM (0.8-4.8); MEAN CORPUSCULAR HGB CONC 32 g/dl (31.0-36.0); MEAN CORPUSCULAR VOLUME 93 fL (82-100); MONOCYTES # (AUTO) 0.6 /CMM (0.1-1.30); MONOCYTES % (AUTO) 9.6 % (2.0-12.0); NEUTROPHILS # (AUTO) 3.8 /CMM (1.8-8.9); NEUTROPHILS % (AUTO) 64.2 % (43.0-81.0); PLATELET COUNT (AUTO) 223 /CMM (150-450); RED BLOOD CELL COUNT(AUTO) 4.01 MIL/uL (4.0-5.2); WHITE BLOOD COUNT (AUTO) 5.9 K/uL (4.3-11.0)
--- NOTE | 2019-02-21 07:19 | NUR ---
FREIGHT CONDUCTOR OPENING NOTE RECEIVED REPORT FROM [facility] SHIFT NURSE. PT ASLEEP IN BED, ON 02 VIA NC 2L/MIN, SATURATING WELL, NO SIGNS OF RESPIRATORY DISTRESS NOTED. LEFT UPPER ARM MIDLINE PATENT, INTACT. AFIB ON THERMOSTAT REPAIRER HR 87. BED IN LOW POSITION, LOCKED, CALL LIGHT WITHIN REACH.
[2019-02-21 07:24] LABS: CALCIUM, SERUM 8.9 mg/dL (8.5-10.1); CREATININE 0.9 mg/dL (0.6-1.3); POTASSIUM 3.5 mmol/L (3.5-5.1)
[2019-02-21] MEDS: PANTOPRAZOLE 40 MG TABLET.DR PO SCH (07:45)
[2019-02-21] MEDS: FUROSEMIDE 40 MG TABLET PO SCH (08:35)
[2019-02-21] MEDS: K PHOS NEUTRAL 250 MG TABLET PO SCH ×2 (08:35→16:46)
[2019-02-21] MEDS: GABAPENTIN 300 MG CAPSULE PO SCH (08:35)
[2019-02-21] MEDS: MULTIVIT W/MINERALS 1 TAB TABLET PO SCH (08:35)
[2019-02-21] MEDS: PROSOURCE / PROSTAT (PYXIS) 30 ML UDC PO SCH ×2 (08:36→16:47)
[2019-02-21] MEDS: ENOXAPARIN SODIUM 40 MG/0.4 ML DISP.SYRIN SQ SCH (11:13)
[2019-02-21] MEDS: WARFARIN SODIUM 5 MG TABLET PO SCH (16:46)
--- NOTE | 2019-02-21 18:51 | NUR ---
PSYCHOLOGY LECTURER CLOSING NOTE PT ASLEEP IN BED, ON ROOM AIR, SATURATING WELL, NO SIGNS OF RESPIRATORY DISTRESS NOTED. LEFT UPPER ARM MIDLINE PATENT, INTACT. AFIB ON ENVIRONMENTAL HEALTH SPECIALIST HR 100. ON 14 DAY HOLD EFFECTIVE 02/21/2019- EVALUATED BY DR. LE BY BEDSIDE AT 18:40. BED IN LOW POSITION, LOCKED, CALL LIGHT WITHIN REACH. PROVIDED SAFETY AND COMFORT TO PT THROUGHOUT SHIFT, ALL DUE MEDS GIVEN.
--- NOTE | 2019-02-21 19:20 | NUR ---
ROLLING DOWN MACHINE OPERATOR OPENING NOTES RECEIVED PATIENT IN BED, A/OX3. SITTER 1:1 FOR PATIENT SAFETY. ON TELE MONITOR AFIB WITH HR 90'S. ON ROOM AIR, NO S/S OF RESPIRATORY OR CARDIAC DISTRESS NOTED. IV SITE LEFT UPPER ARM MIDLINE FLUSHING, PATENT, AND INTACT, SL. SAFETY MEASURES IN PLACE; BED LOCKED AND IN LOW POSITION, CALL LIGHT WITHIN REACH, SIDE RAILS UP X3. WILL CONT TO MONITOR PT CLOSELY.
[2019-02-21] MEDS: risperiDONE 1 MG TABLET PO SCH (19:58)
[2019-02-21] MEDS: DIVALPROEX SODIUM 250 MG TABLET.DR PO SCH (20:03)
[2019-02-22] VITALS: BP 118/93
[2019-02-22] MEDS: METOPROLOL TARTRATE 25 MG TABLET PO SCH ×3 (00:14→12:05)
--- NOTE | 2019-02-22 00:16 | NUR ---
RN NOTES PATIENT STATED "I HAVEN'T BEEN SLEEPING FOR DAYS" AND REQUESTED FOR SLEEPING MEDICATION. ADMINISTERED PRN AMBIEN. WILL CONT TO MONITOR PT.
[2019-02-22 04:00] VITALS: BP 107/79
[2019-02-22] MEDS: CEFTRIAXONE 1 G in IV D5W 50 ML IV SCH (06:23)
[2019-02-22] MEDS: risperiDONE 1 MG TABLET PO SCH (06:29)
--- NOTE | 2019-02-22 06:39 | NUR ---
CONTINUOUS IMPROVEMENT COACH CLOSING NOTES PATIENT SLEEPING IN BED, BUT EASY TO AROUSE, A/OX2-3. SITTER 1:1 FOR PATIENT SAFETY. NO ACUTE CHANGES THROUGHOUT SHIFT. ON TELE MONITOR AFIB WITH HR 80'S. ON OXYGEN 2L VIA NASAL CANNULA, TOLERATING WELL, NO S/S OF RESPIRATORY OR CARDIAC DISTRESS NOTED. IV SITE LEFT UPPER ARM MIDLINE FLUSHING, PATENT, AND INTACT, SL. SAFETY MEASURES IN PLACE; BED LOCKED AND IN LOW POSITION, CALL LIGHT WITHIN REACH, SIDE RAILS UP X3. WILL CONT TO MONITOR PT CLOSELY. WILL ENDORSE TO AM RN FOR HUMBERTO. @2029 PATIENT STATED SHE WAS "BEATEN UP BY A YOUNG NURSE" AWARE.
[2019-02-22 06:46] LABS: BASOPHILS # (AUTO) 0.1 /CMM (0.0-0.2); BASOPHILS % (AUTO) 1.2 % (0.0-2.0); EOSINOPHILS % (AUTO) 4.8 % (0.0-6.0); HEMATOCRIT 38 % (33-45); HEMOGLOBIN 12.4 g/dL (11.5-14.8); LYMPHOCYTES # (AUTO) 1.2 /CMM (0.8-4.8); LYMPHOCYTES % (AUTO) 25.1 % (20.0-44.0); MEAN CORPUSCULAR HGB CONC 33 g/dl (31.0-36.0); MEAN CORPUSCULAR VOLUME 93 fL (82-100); MONOCYTES # (AUTO) 0.5 /CMM (0.1-1.30); MONOCYTES % (AUTO) 10.1 % (2.0-12.0); NEUTROPHILS # (AUTO) 2.7 /CMM (1.8-8.9); NEUTROPHILS % (AUTO) 58.8 % (43.0-81.0); PLATELET COUNT (AUTO) 173 /CMM (150-450); RED BLOOD CELL COUNT(AUTO) 4.08 MIL/uL (4.0-5.2); WHITE BLOOD COUNT (AUTO) 4.6 K/uL (4.3-11.0)
--- NOTE | 2019-02-22 07:15 | NUR ---
ASSISTED LIVING NURSING DIRECTOR OPENING NOTES: RECEIVED PT, IN BED. ALERT, ORIENTED X 2. ON TELE HR 77BPM WITH SINUS RHYTHM ON 2LPM O2 VIA NC CONTINUOUSLY, NO SOB AND ACUTE DISTRESS NOTED. EPISODES OF AGITATION AND AGGRESSIVE BEHAVIOR NOTED WITH SITTER ON BEDSIDE. MIDLINE ON LEFT UPPER ARM, SITE CLEAN, DRY AND INTACT WITH NO INFILTRATION NOTED. BED IN LOW POSITION, LOCKED. BED ALARM ON AND CALL LIGHT IN REACH. WILL CONTINUE TO MONITOR PATIENT CLOSELY.
[2019-02-22 07:34] LABS: CALCIUM, SERUM 8.3 mg/dL (8.5-10.1); CREATININE 0.8 mg/dL (0.6-1.3); MAGNESIUM 1.9 mg/dL (1.8-2.4); POTASSIUM 3.2 mmol/L (3.5-5.1)
[2019-02-22 08:00] VITALS: BP 128/69
[2019-02-22] MEDS: FUROSEMIDE 40 MG TABLET PO SCH (08:08)
[2019-02-22] MEDS: PROSOURCE / PROSTAT (PYXIS) 30 ML UDC PO SCH ×2 (08:09→16:21)
[2019-02-22] MEDS: GABAPENTIN 300 MG CAPSULE PO SCH (08:09)
[2019-02-22] MEDS: K PHOS NEUTRAL 250 MG TABLET PO SCH ×2 (08:34→16:19)
[2019-02-22] MEDS: DIVALPROEX SODIUM 250 MG TABLET.DR PO SCH (08:34)
[2019-02-22] MEDS: MULTIVIT W/MINERALS 1 TAB TABLET PO SCH (08:34)
[2019-02-22] MEDS: PANTOPRAZOLE 40 MG TABLET.DR PO SCH (08:34)
[2019-02-22] MEDS ORDERED: POTASSIUM CHLORIDE 20 MEQ TAB.PRT.SR PO ONE (10:00)
[2019-02-22] MEDS ORDERED: NITROFURANTOIN/NITROFURAN MAC 100 MG CAPSULE PO SCH (10:05)
[2019-02-22] MEDS ORDERED: POTASSIUM CHLORIDE 20 MEQ POWDER PACKET PO ONE (10:30)
[2019-02-22] MEDS: HYDROCODONE/APAP 5/325MG 1 EACH TABLET PO PRN ×2 (11:05→16:27)
[2019-02-22] MEDS: ENOXAPARIN SODIUM 40 MG/0.4 ML DISP.SYRIN SQ SCH (11:06)
[2019-02-22] MEDS ORDERED: WARF5TAB77 PO (14:48)
[2019-02-22] MEDS ORDERED: DIVA250T4 PO (14:48)
[2019-02-22] MEDS ORDERED: NITR100C15 PO (14:48)
[2019-02-22] MEDS ORDERED: RISP1TAB7 PO (14:48)
[2019-02-22] MEDS ORDERED: METO25TA20 PO ×2 (14:48→17:30)
[2019-02-22 16:00] VITALS: BP 126/86
[2019-02-22] MEDS: WARFARIN SODIUM 5 MG TABLET PO SCH (16:21)
--- NOTE | 2019-02-22 16:49 | NUR ---
MS RN NOTES PT DISCHARGE GIVEN TO GUSTAVO MERCER IN [facility].
--- NOTE | 2019-02-22 17:05 | NUR ---
MS RN NOTES TAB METOPROLOL 25MG PO IS GIVEN AND UNABLE TO SCAN THE MEDICATION IN THE EMR THE PT GET DISCHARGED FROM THE COMPUTER SOON AFTER.PHARMACIST MADE AWARE.
[2019-02-22] MEDS ORDERED: DIVA-76 PO (17:30)
[2019-02-22] MEDS ORDERED: RISP0.2515 PO (17:30)
[2019-02-22] MEDS ORDERED: WARF-58 PO (17:30)
--- NOTE | 2019-02-22 18:00 | NUR ---
MS PYROTECHNICIAN NOTES PT IS DISCHARGED TO [facility] IN [facility].REPORT GIVEN TO GUSTAVO MERCER IN [facility].MIDLINE FROM LEFT UPPER ARM IS REMOVED,NO BLEEDING NOTED.WITH 2LPM 02 VIA NC CONTINUOUSLY,NO SOB AND ACUTE DISTRESS NOTED.ALL THE DISCHARGE PAPERWORK HANDLED TO [facility] WITH BELONGINGS.PT TRANSFERRED VIA AMBULANCE BY 3 PERSON ASSISTANCE.NO COMPLICATIONS NOTED.
== END 2019-02-22 16:49 | DRG 690 ==
LOC: ER 03:30 → TELE1 07:55 → MEDSG1 02-22 11:53
PROVIDERS: ADMIT Hospitalist; ATTEND Hospitalist
PROC: 05H633Z Insertion of Infusion Device into Left Subclavian Vein, Percutaneous Approach (ICD-10-PCS; principal; 2019-02-20)
PROC: B547ZZA Ultrasonography of Left Subclavian Vein, Guidance (ICD-10-PCS; 2019-02-20)
DX: N39.0 Urinary tract infection, site not specified (principal); J98.11 Atelectasis; I50.32 Chronic diastolic (congestive) heart failure; I48.91 Unspecified atrial fibrillation; Z79.82 Long term (current) use of aspirin; E66.9 Obesity, unspecified; E78.5 Hyperlipidemia, unspecified; E83.52 Hypercalcemia; Z95.2 Presence of prosthetic heart valve; F32.9 Major depressive disorder, single episode, unspecified; R53.1 Weakness; B95.2 Enterococcus as the cause of diseases classified elsewhere; F39 Unspecified mood [affective] disorder; G47.33 Obstructive sleep apnea (adult) (pediatric); S40.811A Abrasion of right upper arm, initial encounter; S80.211A Abrasion, right knee, initial encounter; X58.XXXA Exposure to other specified factors, initial encounter; Y93.9 Activity, unspecified; I11.0 Hypertensive heart disease with heart failure; Y92.89 Other specified places as the place of occurrence of the external cause; F29 Unspecified psychosis not due to a substance or known physiological condition; J44.9 Chronic obstructive pulmonary disease, unspecified; F03.90 Unspecified dementia, unspecified severity, without behavioral disturbance, psychotic disturbance, mood disturbance, and anxiety; Z68.28 Body mass index [BMI] 28.0-28.9, adult
CPT/HCPCS: 36415; 36569; 71045-TC; 80048-TC; 80053-TC; 80061-TC; 80076-TC; 80305; 81000-TC; 83605-TC; 83735-TC; 83880; 84100-TC; 84439-TC; 84443-TC; 84484-TC; 85025-TC; 85610-TC; 87040-TC; 87081-TC; 87086-TC; 87186-TC; 93307-TC; G0378; G0480; J0696; J1650; J1940; J2543; J3370; J3490; J7030; J7060

== ENCOUNTER 2019-02-22 16:55 | Inpatient (IN) | payer MEDICARE, MEDICAID ==
[~2019-02-22] VITALS: Ht 157.5 cm; Wt 77.6 kg
[~2019-02-22 16:55] MED LIST changes: -AMLO1CAP92 PO; +DICL100G16 TP; +DIVA250T4 PO; -IPRA0.2S9 NEB; +IPRA3AMP23 IH; -LEVA1.2524 IH; -LOSA1TAB9 PO; +MAG30ORA PO; -METO-357 PO; +METO25TA20 PO; +MULT-439 PO; +NEUTRA-PHOS PO; +NITR100C15 PO; +PANT40TA2 PO; -POTA10CA43 PO; -PRED50TA PO; +PROT946L PO; +RIFA200T2 PO; +RISP1TAB7 PO; -SIMV20TA2 PO; -TRAM50TA2 PO; +WARF5TAB77 PO
[2019-02-22] MEDS ORDERED: METO25TA20 PO (17:30)
[2019-02-22] MEDS ORDERED: WARF-58 PO (17:30)
[2019-02-22] MEDS ORDERED: RISP0.2515 PO (17:30)
[2019-02-22] MEDS ORDERED: DIVA-76 PO (17:30)
[2019-02-22] MEDS ORDERED: MAG HYDROX/AL HYDROX/SIMETH 30 ML UDC PO PRN (20:30)
[2019-02-22] MEDS ORDERED: ACETAMINOPHEN 325 MG TABLET PO PRN (20:30)
[2019-02-22] MEDS ORDERED: BLOOD SUGAR DIAGNOSTIC 1 EACH STRIP IN ONE (20:30)
[2019-02-22] MEDS ORDERED: MAGNESIUM HYDROXIDE 30 ML UDC PO PRN (20:30)
[2019-02-22 20:31] VITALS: BP 125/99
[2019-02-22] MEDS: DIVALPROEX SODIUM 250 MG TABLET.DR PO SCH (21:29)
[2019-02-22] MEDS: risperiDONE 1 MG TABLET PO SCH (21:29)
[2019-02-22] MEDS: TEMAZEPAM 7.5 MG CAPSULE PO PRN (21:30)
[2019-02-22] MEDS: LORAZEPAM 0.5 MG TABLET PO PRN (21:30)
[2019-02-23 07:09] LABS: ALBUMIN 2.6 g/dL (3.4-5.0); BILIRUBIN,TOTAL 0.5 mg/dL (0.2-1.0); CALCIUM, SERUM 8.6 mg/dL (8.5-10.1); CREATININE 0.7 mg/dL (0.6-1.3); POTASSIUM 3.9 mmol/L (3.5-5.1); TOTAL PROTEIN, SERUM 6.1 g/dL (6.4-8.2)
[2019-02-23 07:10] LABS: CHOLESTEROL 188 mg/dL (<200); HDL CHOLESTEROL 37 mg/dL (40-60); LDL 134 mg/dL (0-99); TRIGLYCERIDES 84 mg/dL (30-150)
[2019-02-23 08:00] VITALS: BP 138/99
[2019-02-23] MEDS: risperiDONE 1 MG TABLET PO SCH ×2 (08:19→21:15)
[2019-02-23] MEDS: DIVALPROEX SODIUM 250 MG TABLET.DR PO SCH ×2 (08:19→21:15)
[2019-02-23] MEDS: Z GUARD REMEDY 4 OZ OINT TP SCH (08:29)
[2019-02-23] MEDS: METOPROLOL TARTRATE 25 MG TABLET PO SCH ×2 (12:33→17:25)
[2019-02-23] MEDS: RIFAXIMIN 200 MG TABLET PO SCH ×2 (12:35→17:00)
[2019-02-23] MEDS ORDERED: DICLOFENAC TOPICAL 100 GM GEL..GM. TP SCH (13:00)
[2019-02-23 16:00] VITALS: BP 102/71
[2019-02-23] MEDS: WARFARIN SODIUM 5 MG TABLET PO SCH (17:00)
[2019-02-23] MEDS: LORAZEPAM 0.5 MG TABLET PO PRN (19:59)
[2019-02-23 20:27] VITALS: BP 120/58
[2019-02-24] MEDS: METOPROLOL TARTRATE 25 MG TABLET PO SCH ×4 (06:39→18:26)
[2019-02-24 08:00] VITALS: BP 148/97
[2019-02-24] MEDS: risperiDONE 1 MG TABLET PO SCH (08:45)
[2019-02-24] MEDS: DIVALPROEX SODIUM 250 MG TABLET.DR PO SCH ×2 (08:45→21:01)
[2019-02-24] MEDS: RIFAXIMIN 200 MG TABLET PO SCH ×3 (08:49→17:51)
[2019-02-24] MEDS: FUROSEMIDE 40 MG TABLET PO SCH (08:53)
[2019-02-24] MEDS ORDERED: NEUTRA PHOS 1 POWD.PACKET PO ONE (09:00)
[2019-02-24] MEDS: PROSOURCE / PROSTAT (PYXIS) 30 ML UDC PO SCH (09:00)
[2019-02-24] MEDS: Z GUARD REMEDY 4 OZ OINT TP SCH (09:01)
[2019-02-24 16:00] VITALS: BP 144/95
[2019-02-24] MEDS: WARFARIN SODIUM 5 MG TABLET PO SCH (18:23)
[2019-02-24 20:28] VITALS: BP 154/97
[2019-02-24] MEDS: ENOXAPARIN SODIUM 80 MG/0.8 ML DISP.SYRIN SQ SCH (20:54)
[2019-02-24] MEDS: risperiDONE 0.25 MG TABLET PO SCH (21:05)
[2019-02-24] MEDS: TEMAZEPAM 7.5 MG CAPSULE PO PRN (21:46)
[2019-02-25] MEDS: METOPROLOL TARTRATE 25 MG TABLET PO SCH ×5 (00:25→23:23)
[2019-02-25 08:36] VITALS: BP 143/99
[2019-02-25] MEDS: Z GUARD REMEDY 4 OZ OINT TP SCH (09:18)
[2019-02-25] MEDS: risperiDONE 0.25 MG TABLET PO SCH ×2 (09:20→20:45)
[2019-02-25] MEDS: RIFAXIMIN 200 MG TABLET PO SCH ×3 (09:20→16:43)
[2019-02-25] MEDS: FUROSEMIDE 40 MG TABLET PO SCH (09:21)
[2019-02-25] MEDS: DIVALPROEX SODIUM 250 MG TABLET.DR PO SCH ×2 (09:21→20:45)
[2019-02-25] MEDS: PROSOURCE / PROSTAT (PYXIS) 30 ML UDC PO SCH (09:21)
[2019-02-25] MEDS: ENOXAPARIN SODIUM 80 MG/0.8 ML DISP.SYRIN SQ SCH ×2 (09:24→20:46)
[2019-02-25 16:00] VITALS: BP 140/87
[2019-02-25] MEDS: WARFARIN SODIUM 5 MG TABLET PO SCH (16:32)
[2019-02-25 20:19] VITALS: BP 149/80
[2019-02-25 20:21] VITALS: BP 149/80
[2019-02-26] MEDS: TEMAZEPAM 7.5 MG CAPSULE PO PRN (01:30)
[2019-02-26] MEDS: METOPROLOL TARTRATE 25 MG TABLET PO SCH ×4 (06:26→17:44)
[2019-02-26 08:00] VITALS: BP 130/60
[2019-02-26 09:13] LABS: BASOPHILS % (AUTO) 0.9 % (0.0-2.0); EOSINOPHILS % (AUTO) 2.7 % (0.0-6.0); HEMATOCRIT 39 % (33-45); HEMOGLOBIN 12.8 g/dL (11.5-14.8); LYMPHOCYTES # (AUTO) 0.9 /CMM (0.8-4.8); LYMPHOCYTES % (AUTO) 17.3 % (20.0-44.0); MEAN CORPUSCULAR HGB CONC 33 g/dl (31.0-36.0); MEAN CORPUSCULAR VOLUME 92 fL (82-100); MONOCYTES # (AUTO) 0.5 /CMM (0.1-1.30); MONOCYTES % (AUTO) 9.5 % (2.0-12.0); NEUTROPHILS # (AUTO) 3.5 /CMM (1.8-8.9); NEUTROPHILS % (AUTO) 69.6 % (43.0-81.0); PLATELET COUNT (AUTO) 150 /CMM (150-450); RED BLOOD CELL COUNT(AUTO) 4.28 MIL/uL (4.0-5.2); WHITE BLOOD COUNT (AUTO) 5.1 K/uL (4.3-11.0)
[2019-02-26] MEDS: RIFAXIMIN 200 MG TABLET PO SCH ×4 (09:14→17:00)
[2019-02-26] MEDS: risperiDONE 0.25 MG TABLET PO SCH ×2 (09:14→21:27)
[2019-02-26] MEDS: FUROSEMIDE 40 MG TABLET PO SCH (09:14)
[2019-02-26] MEDS: DIVALPROEX SODIUM 250 MG TABLET.DR PO SCH ×2 (09:14→21:17)
[2019-02-26] MEDS: ENOXAPARIN SODIUM 80 MG/0.8 ML DISP.SYRIN SQ SCH (09:15)
[2019-02-26] MEDS: Z GUARD REMEDY 4 OZ OINT TP SCH (09:21)
[2019-02-26] MEDS: PROSOURCE / PROSTAT (PYXIS) 30 ML UDC PO SCH (09:21)
[2019-02-26 09:25] LABS: CALCIUM, SERUM 8.4 mg/dL (8.5-10.1); CREATININE 0.6 mg/dL (0.6-1.3); POTASSIUM 3.3 mmol/L (3.5-5.1)
[2019-02-26] MEDS: WARFARIN SODIUM 5 MG TABLET PO SCH ×2 (16:59→17:00)
[2019-02-26 20:34] VITALS: BP 166/99
[2019-02-26] MEDS: HYDROCODONE/APAP 5/325MG 1 EACH TABLET PO PRN (21:18)
[2019-02-27] MEDS: METOPROLOL TARTRATE 25 MG TABLET PO SCH ×4 (01:59→17:09)
[2019-02-27 07:07] LABS: HIV SCRN 4G wRFX Non Reactive (Non Reactive)
[2019-02-27 08:00] VITALS: BP 127/87
[2019-02-27] MEDS: risperiDONE 0.25 MG TABLET PO SCH ×2 (10:15→21:19)
[2019-02-27] MEDS: FUROSEMIDE 40 MG TABLET PO SCH (10:16)
[2019-02-27] MEDS: DIVALPROEX SODIUM 250 MG TABLET.DR PO SCH ×2 (10:16→21:19)
[2019-02-27] MEDS: Z GUARD REMEDY 4 OZ OINT TP SCH (10:16)
[2019-02-27] MEDS: PROSOURCE / PROSTAT (PYXIS) 30 ML UDC PO SCH (10:19)
[2019-02-27] MEDS: RIFAXIMIN 200 MG TABLET PO SCH ×3 (11:09→17:08)
[2019-02-27 16:00] VITALS: BP 144/71
[2019-02-27] MEDS: WARFARIN SODIUM 5 MG TABLET PO SCH (17:12)
[2019-02-27 20:17] VITALS: BP 123/102
[2019-02-27] MEDS: HYDROCODONE/APAP 5/325MG 1 EACH TABLET PO PRN (21:19)
[2019-02-28] MEDS: METOPROLOL TARTRATE 25 MG TABLET PO SCH ×4 (01:03→17:59)
[2019-02-28 08:29] VITALS: BP 140/94
[2019-02-28] MEDS: DIVALPROEX SODIUM 250 MG TABLET.DR PO SCH ×2 (08:56→20:31)
[2019-02-28] MEDS: RIFAXIMIN 200 MG TABLET PO SCH ×3 (08:56→18:01)
[2019-02-28] MEDS: risperiDONE 0.25 MG TABLET PO SCH ×2 (08:56→20:31)
[2019-02-28] MEDS: FUROSEMIDE 40 MG TABLET PO SCH (08:56)
[2019-02-28] MEDS: PROSOURCE / PROSTAT (PYXIS) 30 ML UDC PO SCH (08:56)
[2019-02-28] MEDS: Z GUARD REMEDY 4 OZ OINT TP SCH (08:57)
[2019-02-28] MEDS: LORAZEPAM 0.5 MG TABLET PO PRN (13:01)
[2019-02-28 16:25] VITALS: BP 128/73
[2019-02-28] MEDS: WARFARIN SODIUM 5 MG TABLET PO SCH (18:00)
[2019-02-28 20:12] VITALS: BP 127/70
[2019-02-28] MEDS: TEMAZEPAM 7.5 MG CAPSULE PO PRN (21:51)
[2019-03-01] MEDS: METOPROLOL TARTRATE 25 MG TABLET PO SCH ×5 (00:30→23:27)
[2019-03-01 08:00] VITALS: BP 141/75
[2019-03-01] MEDS: risperiDONE 0.25 MG TABLET PO SCH ×2 (09:00→20:54)
[2019-03-01] MEDS: FUROSEMIDE 40 MG TABLET PO SCH (09:17)
[2019-03-01] MEDS: DIVALPROEX SODIUM 250 MG TABLET.DR PO SCH ×2 (09:17→20:55)
[2019-03-01] MEDS: PROSOURCE / PROSTAT (PYXIS) 30 ML UDC PO SCH (09:17)
[2019-03-01] MEDS: RIFAXIMIN 200 MG TABLET PO SCH ×3 (09:22→17:30)
[2019-03-01] MEDS: Z GUARD REMEDY 4 OZ OINT TP SCH (09:26)
[2019-03-01 12:17] LABS: BASOPHILS % (AUTO) 0.8 % (0.0-2.0); EOSINOPHILS % (AUTO) 1.8 % (0.0-6.0); HEMATOCRIT 43 % (33-45); HEMOGLOBIN 13.7 g/dL (11.5-14.8); LYMPHOCYTES # (AUTO) 0.8 /CMM (0.8-4.8); LYMPHOCYTES % (AUTO) 17.7 % (20.0-44.0); MEAN CORPUSCULAR HGB CONC 32 g/dl (31.0-36.0); MEAN CORPUSCULAR VOLUME 92 fL (82-100); MONOCYTES # (AUTO) 0.5 /CMM (0.1-1.30); MONOCYTES % (AUTO) 11.3 % (2.0-12.0); NEUTROPHILS # (AUTO) 2.9 /CMM (1.8-8.9); NEUTROPHILS % (AUTO) 68.4 % (43.0-81.0); PLATELET COUNT (AUTO) 130 /CMM (150-450); RED BLOOD CELL COUNT(AUTO) 4.65 MIL/uL (4.0-5.2); WHITE BLOOD COUNT (AUTO) 4.2 K/uL (4.3-11.0)
[2019-03-01 12:29] LABS: CALCIUM, SERUM 8.9 mg/dL (8.5-10.1); CREATININE 0.7 mg/dL (0.6-1.3); MAGNESIUM 1.8 mg/dL (1.8-2.4); PHOSPHORUS 3.6 mg/dL (2.5-4.9); POTASSIUM 3.5 mmol/L (3.5-5.1)
[2019-03-01 16:00] VITALS: BP 135/74
[2019-03-01] MEDS: WARFARIN SODIUM 5 MG TABLET PO SCH (18:15)
[2019-03-01 20:23] VITALS: BP 140/70
[2019-03-01] MEDS: TEMAZEPAM 7.5 MG CAPSULE PO PRN (23:25)
[2019-03-01] MEDS: HYDROCODONE/APAP 5/325MG 1 EACH TABLET PO PRN (23:26)
[2019-03-02] MEDS: METOPROLOL TARTRATE 25 MG TABLET PO SCH ×3 (05:27→17:43)
[2019-03-02 08:00] VITALS: BP 142/74
[2019-03-02] MEDS: DIVALPROEX SODIUM 250 MG TABLET.DR PO SCH ×2 (08:32→21:57)
[2019-03-02] MEDS: FUROSEMIDE 40 MG TABLET PO SCH (08:32)
[2019-03-02] MEDS: risperiDONE 0.25 MG TABLET PO SCH ×2 (08:33→21:57)
[2019-03-02] MEDS: RIFAXIMIN 200 MG TABLET PO SCH ×3 (08:33→17:44)
[2019-03-02] MEDS: Z GUARD REMEDY 4 OZ OINT TP SCH (08:35)
[2019-03-02] MEDS: PROSOURCE / PROSTAT (PYXIS) 30 ML UDC PO SCH (08:47)
[2019-03-02 16:00] VITALS: BP 144/86
[2019-03-02 20:32] VITALS: BP 144/96
[2019-03-02] MEDS: WARFARIN SODIUM 5 MG TABLET PO SCH (21:59)
[2019-03-02] MEDS: HYDROCODONE/APAP 5/325MG 1 EACH TABLET PO PRN (22:00)
[2019-03-03] MEDS: TEMAZEPAM 7.5 MG CAPSULE PO PRN (00:29)
[2019-03-03] MEDS: METOPROLOL TARTRATE 25 MG TABLET PO SCH ×3 (00:29→12:14)
[2019-03-03] MEDS ORDERED: Z GUARD REMEDY 2 OZ OINT TP PRN (07:00)
[2019-03-03 08:00] VITALS: BP 142/97
[2019-03-03] MEDS: DIVALPROEX SODIUM 250 MG TABLET.DR PO SCH (08:22)
[2019-03-03] MEDS: FUROSEMIDE 40 MG TABLET PO SCH (08:22)
[2019-03-03] MEDS: LORAZEPAM 0.5 MG TABLET PO PRN (08:22)
[2019-03-03] MEDS: risperiDONE 0.25 MG TABLET PO SCH (08:22)
[2019-03-03] MEDS: Z GUARD REMEDY 4 OZ OINT TP SCH (08:23)
[2019-03-03] MEDS: PROSOURCE / PROSTAT (PYXIS) 30 ML UDC PO SCH (08:24)
[2019-03-03] MEDS: RIFAXIMIN 200 MG TABLET PO SCH ×2 (08:24→12:14)
[2019-03-03 12:14] VITALS: BP 108/70
== END 2019-03-03 15:30 | DRG 885 ==
LOC: GPS 16:55
PROVIDERS: ADMIT Psychiatry & Neurology Psychiatry; ATTEND Nurse Practitioner Acute Care
DX: F39 Unspecified mood [affective] disorder (principal); I11.0 Hypertensive heart disease with heart failure; D68.59 Other primary thrombophilia; N39.0 Urinary tract infection, site not specified; I50.32 Chronic diastolic (congestive) heart failure; F29 Unspecified psychosis not due to a substance or known physiological condition; E03.9 Hypothyroidism, unspecified; E78.5 Hyperlipidemia, unspecified; F03.90 Unspecified dementia, unspecified severity, without behavioral disturbance, psychotic disturbance, mood disturbance, and anxiety; F32.9 Major depressive disorder, single episode, unspecified; J44.9 Chronic obstructive pulmonary disease, unspecified; I48.91 Unspecified atrial fibrillation; R53.1 Weakness; R26.81 Unsteadiness on feet; Z79.01 Long term (current) use of anticoagulants; Z95.2 Presence of prosthetic heart valve
CPT/HCPCS: 36415; 80048-TC; 80053-TC; 80061-TC; 83735-TC; 84100-TC; 85025-TC; 85610-TC; J1650

== ENCOUNTER 2019-03-28 15:47 | Inpatient (IN) | payer MEDICARE, OTHER ==
[~2019-03-28] VITALS: Ht 165.1 cm; Wt 77.7 kg
[~2019-03-28 15:47] MED LIST changes: -ASPI-1169 PO; -DIVA250T4 PO; -GABA-534 PO; -RISP1TAB7 PO; +WARF-58 PO; -WARF5TAB77 PO
--- NOTE | 2019-03-28 15:50 | NUR ---
"[facility], SEND BY PMD FOR SOB, CONGESTION X 1 WEEK" PT AAOX2-3, PT ON MONITOR, VSS, NAD NOTED, PENDING MD SANCHEZ
[2019-03-28] MEDS ORDERED: DIVA125C2 PO (16:09)
[2019-03-28] MEDS ORDERED: RISP0.2515 PO (16:09)
[2019-03-28] MEDS ORDERED: DOCU-141 PO (16:09)
[2019-03-28] MEDS ORDERED: ACET-868 PO (16:09)
[2019-03-28] MEDS ORDERED: MAGN400O6 PO (16:09)
[2019-03-28] MEDS ORDERED: WARF6TAB23 PO (16:13)
[2019-03-28] MEDS ORDERED: AMIN30LI2 PO (16:13)
[2019-03-28] MEDS ORDERED: IBUP-1955 PO (16:13)
[2019-03-28] MEDS ORDERED: ALBUTEROL FS 2.5 MG/3 ML VIAL.NEB NEB ONE (16:30)
[2019-03-28] MEDS ORDERED: IPRATROPIUM NEB FS 0.5 MG/2.5 ML AMPUL.NEB NEB ONE (16:30)
[2019-03-28] MEDS ORDERED: methylPREDNISolone SOD SUCC 125 MG/2ML VIAL IV ONE (16:30)
[2019-03-28] MEDS ORDERED: CEFTRIAXONE 1GM BAG (ER ONLY) 50 ML IV ONE (16:40)
[2019-03-28] MEDS ORDERED: methylPREDNISolone SOD SUCC 125 MG/2ML VIAL ONE (16:41)
[2019-03-28] MEDS ORDERED: ALBUTEROL FS 2.5 MG/3 ML VIAL.NEB ONE (16:46)
[2019-03-28] MEDS ORDERED: IPRATROPIUM NEB FS 0.5 MG/2.5 ML AMPUL.NEB ONE (16:46)
[2019-03-28 16:47] LABS: BASOPHILS % (AUTO) 0.3 % (0.0-2.0); EOSINOPHILS % (AUTO) 1.4 % (0.0-6.0); HEMATOCRIT 38 % (33-45); HEMOGLOBIN 12.2 g/dL (11.5-14.8); LYMPHOCYTES # (AUTO) 0.8 /CMM (0.8-4.8); LYMPHOCYTES % (AUTO) 8.8 % (20.0-44.0); MEAN CORPUSCULAR HGB CONC 32 g/dl (31.0-36.0); MEAN CORPUSCULAR VOLUME 94 fL (82-100); MONOCYTES # (AUTO) 1.1 /CMM (0.1-1.30); MONOCYTES % (AUTO) 12.1 % (2.0-12.0); NEUTROPHILS % (AUTO) 77.4 % (43.0-81.0); PLATELET COUNT (AUTO) 138 /CMM (150-450); RED BLOOD CELL COUNT(AUTO) 4.05 MIL/uL (4.0-5.2)
[2019-03-28 16:57] LABS: CALCIUM, SERUM 9.3 mg/dL (8.5-10.1); CARBON DIOXIDE 39 mmol/L (21-32); CHLORIDE 106 mmol/L (98-107); CREATININE 0.8 mg/dL (0.6-1.3); GLUCOSE 69 mg/dL (74-106); POTASSIUM 4.8 mmol/L (3.5-5.1); SODIUM SERUM 145 mmol/L (136-145); UREA NITROGEN, BLOOD 31 mg/dL (7-18)
[2019-03-28] MEDS ORDERED: VANCOMYCIN HCL 1 GM in IV D5W 260 ML IV ONE (17:00)
[2019-03-28] MEDS ORDERED: CEFTRIAXONE 1GM BAG (ER ONLY) 1 GM/50 ML PIGGYBACK IV ONE (17:00)
[2019-03-28 17:10] LABS: ALANINE AMINOTRANSFERASE 20 U/L (12-78); ALBUMIN 2.7 g/dL (3.4-5.0); ALKALINE PHOSPHATASE 102 U/L (46-116); ASPARTATE AMINOTRANSFERASE 34 U/L (15-37); B-TYPE NATRIURETIC PEPTIDE 1417 PG/ML (0-125); BILIRUBIN,DIRECT 0.2 mg/dL (0.0-0.2); BILIRUBIN,TOTAL 0.6 mg/dL (0.2-1.0); TOTAL PROTEIN, SERUM 6.6 g/dL (6.4-8.2)
--- NOTE | 2019-03-28 17:20 | NUR ---
RN sup was called, waiting for bed assignment
[2019-03-28] MEDS ORDERED: FUROSEMIDE 40 MG/4 ML VIAL IV ONE (17:30)
--- NOTE | 2019-03-28 17:39 | NUR ---
epic paged for panel call
--- NOTE | 2019-03-28 17:48 | NUR ---
tele [phone]
[2019-03-28] MEDS ORDERED: FUROSEMIDE 20 MG/2 ML VIAL ONE (17:52)
[2019-03-28] MEDS ORDERED: FUROSEMIDE 40 MG/4 ML VIAL ONE (17:52)
--- NOTE | 2019-03-28 18:13 | NUR ---
RN NOTES RECEIVED REPORT FROM GUSTAVO KINGSTON REGARDING THE PATIENT.
--- NOTE | 2019-03-28 18:24 | NUR ---
REPORT GIVEN TO JULIENNE CHEN FOR HUMBERTO PT TRANSPORTED TO 3RD FLOOR VIA ACLS PROTOCL
--- NOTE | 2019-03-28 18:24 | NUR ---
RN NOTES RECEIVED PATIENT FROM E.R VIA STONE WITH 2 E.R STAFF. A/O X 3. PATIENT IS ON OXYGEN 4LPM VIA NC. NO SIGNS OF DISTRESS NOTED AT THIS TIME. IV ACCESS ON LEFT AC #20. PATENT AND INTACT. WILL ENDORSE TO DISTRICT HOME ECONOMICS AGENT NURSE FOR ADMISSION.
[2019-03-28] MEDS ORDERED: BUMETANIDE INJ 4 MG in IV NS 0.9% 24 ML IV ONE (18:30)
[2019-03-28] MEDS ORDERED: Z GUARD REMEDY 2 OZ OINT TP PRN (18:30)
[2019-03-28] MEDS ORDERED: ONDANSETRON HCL/PF 4 MG/2 ML VIAL IVP PRN (18:30)
[2019-03-28] MEDS ORDERED: ACETAMINOPHEN 325 MG TABLET PO PRN (18:30)
[2019-03-28] MEDS ORDERED: WARFARIN SODIUM 2 MG TABLET PO SCH (19:00)
--- NOTE | 2019-03-28 19:37 | NUR ---
ANIMAL NURSE NOTES PATIENT IN BED ASLEEP, ALERT AND ORIENTED X 2-3. BREATHING EVEN AND UNLABORED RESPIRATIONS ON 4L NC. ON TELE MONITOR. AFIB 114BMP. IV IS ON L AC #20G, CLEAN, DRY AND INTACT. SHOWS NO SIGNS OF REDNESS, NO INFILTRATION. SAFETY PRECAUTIONS IN PLACE. BED IN LOWEST POSITION, LOCKED, AND CALL LIGHT KEPT WITHIN REACH. WILL CONTINUE TO MONITOR.
[2019-03-28 20:00] VITALS: BP 145/94
--- NOTE | 2019-03-28 20:14 | NUR ---
MS RN NOTES CALL [facility], FOR DR. RODRIGUEZ REGARDING LAB VALUE FOR PT, INR, AND LACTIC ACID.
--- NOTE | 2019-03-28 20:21 | NUR ---
MS RN NOTES SPOKE TO DR. RODRIGUEZ, REGARDING LABS. RECEIVED VERBAL ORDER FOR NS 75ML/HR AND LAB IN 6 HOURS FOR LACTIC ACID. WILL CARRY OUT ORDERS.
[2019-03-28] MEDS ORDERED: IV NS 0.9% 1,000 ML BAG IV PRN (20:30)
[2019-03-28] MEDS: risperiDONE 0.25 MG TABLET PO SCH (21:12)
[2019-03-28] MEDS: DIVALPROEX SODIUM 125 MG CAP.SPRINK PO SCH (21:13)
[2019-03-28] MEDS ORDERED: IV NS 0.9% 1,000 ML IV SCH (21:30)
[2019-03-29] VITALS (8 sets, daily range): BP systolic 110–127; BP diastolic 73–92
[2019-03-29] MEDS: METOPROLOL TARTRATE 25 MG TABLET PO SCH ×4 (00:26→17:31)
--- NOTE | 2019-03-29 04:00 | NUR ---
RN NOTES DC'd IVF. REPEAT LACTIC ACID CAME BACK 1.5
--- NOTE | 2019-03-29 05:42 | NUR ---
RN NOTES Pt C/O SEVERE SOB. SPOKE WITH DR. RODRIGUEZ ON THE PHONE. RECEIVED VERBAL ORDER FOR ALBUTERAL BREATHING TREATMENT Q4H PRN. ALSO INFORMED HIM THAT Pt WAS C/O RT ARM PAIN, AND NOTED BRUISING & SWELLING ON THE ARM WELL, GAVE ORDER FOR VENOUS ULTRA SOUND OF THE RT ARM TO R/O POSSIBLE DVT. WILL CARRY OUT ORDER.
--- NOTE | 2019-03-29 05:44 | NUR ---
RN NOTES CALLED RT FOR BREATHING TREATMENT.
[2019-03-29] MEDS: ALBUTEROL FS 2.5 MG/3 ML VIAL.NEB NEB PRN ×2 (06:01→10:43)
--- NOTE | 2019-03-29 06:54 | NUR ---
RN NOTES PATIENT IN BED, EASILY AROUSED, ALERT AND ORIENTED X 2-3. BREATHING EVEN AND UNLABORED. DENIES ACUTE RESPIRATORY DISTRESS, NO ACUTE PAIN. IV ON LAC SALINE LOCK, CLEAN DRY AND INTACT. SHOWS NO SIGNS OF INFILTRATION, NO REDNESS. ATTENDED TO PATIENT NEEDS THROUGHOUT SHIFT. BED IN LOWEST POSITION, LOCKED, AND CALL LIGHT KEPT WITHIN REACH. WILL ENDORSE TO MORNING SHIFT NURSE.
[2019-03-29] MEDS ORDERED: LACTULOSE 10 G/15 ML UDC (PYXIS) PO PRN (07:30)
[2019-03-29 07:57] LABS: BASOPHILS % (AUTO) 0.1 % (0.0-2.0); HEMATOCRIT 37 % (33-45); HEMOGLOBIN 11.8 g/dL (11.5-14.8); LYMPHOCYTES # (AUTO) 0.5 /CMM (0.8-4.8); LYMPHOCYTES % (AUTO) 6.5 % (20.0-44.0); MEAN CORPUSCULAR HGB CONC 32 g/dl (31.0-36.0); MEAN CORPUSCULAR VOLUME 93 fL (82-100); MONOCYTES # (AUTO) 0.3 /CMM (0.1-1.30); NEUTROPHILS # (AUTO) 6.7 /CMM (1.8-8.9); NEUTROPHILS % (AUTO) 89.4 % (43.0-81.0); PLATELET COUNT (AUTO) 113 /CMM (150-450); RED BLOOD CELL COUNT(AUTO) 3.94 MIL/uL (4.0-5.2); WHITE BLOOD COUNT (AUTO) 7.5 K/uL (4.3-11.0)
[2019-03-29 08:10] LABS: ALBUMIN 2.2 g/dL (3.4-5.0); BILIRUBIN,TOTAL 0.3 mg/dL (0.2-1.0); CALCIUM, SERUM 8.4 mg/dL (8.5-10.1); CREATININE 0.8 mg/dL (0.6-1.3); MAGNESIUM 1.9 mg/dL (1.8-2.4); PHOSPHORUS 4.4 mg/dL (2.5-4.9); TOTAL PROTEIN, SERUM 5.6 g/dL (6.4-8.2)
[2019-03-29 08:20] LABS: THYROID STIMULATING HORMONE 17.852 uIU/mL (0.358-3.74)
[2019-03-29] MEDS: DIVALPROEX SODIUM 125 MG CAP.SPRINK PO SCH ×2 (08:44→21:09)
[2019-03-29] MEDS: risperiDONE 0.25 MG TABLET PO SCH ×2 (08:44→21:09)
[2019-03-29] MEDS: DOCUSATE SODIUM 100 MG CAPSULE PO SCH (08:44)
[2019-03-29] MEDS: RIFAXIMIN 200 MG TABLET PO SCH ×3 (08:45→16:18)
[2019-03-29] MEDS ORDERED: FUROSEMIDE 40 MG TABLET PO SCH (09:00)
[2019-03-29] MEDS ORDERED: BUMETANIDE INJ 4 MG in IV NS 0.9% 24 ML IV ONE (14:00)
[2019-03-29] MEDS ORDERED: ALBUTEROL SULFATE INH 18 GM HFA.AER.AD IH SCH (15:30)
[2019-03-29] MEDS: WARFARIN SODIUM 2 MG TABLET PO SCH (16:21)
[2019-03-29] MEDS ORDERED: WARFARIN SODIUM 2 MG TABLET PO SCH (17:00)
--- NOTE | 2019-03-29 18:30 | NUR ---
ALBUTEROL BREATHING TREATMENT Q4H PRN CHANGED TO Q4HR SCHEDULED. PATIENT NOTED WITH IMPROVEMENT. CURRENTLY ON 4L O2 VIA NC, SATURATED ABOVE 95 %. aLL NEEDS ATTENDED; BUMEX IV RUNNING PRESCRIBED. PATIENT KEPT CLEAN AND DRY. SAFETY MEASURES IMPLEMENTED AND CALL LIGHT WITHIN REACH. WILL ENDORSE TO NEXT SHIFT FOR HUMBERTO.
[2019-03-29] MEDS: ALBUTEROL FS 2.5 MG/3 ML VIAL.NEB NEB SCH ×2 (20:09→23:30)
[2019-03-29] MEDS ORDERED: ACETAMINOPHEN 325 MG TABLET PO PRN (23:00)
[2019-03-30] VITALS (7 sets, daily range): BP systolic 106–140; BP diastolic 56–92
[2019-03-30] MEDS: METOPROLOL TARTRATE 25 MG TABLET PO SCH ×4 (01:20→17:25)
[2019-03-30] MEDS: ALBUTEROL FS 2.5 MG/3 ML VIAL.NEB NEB SCH ×6 (03:43→23:25)
--- NOTE | 2019-03-30 06:38 | NUR ---
RN NOTES PATIENT IN BED, ASLEEP, ALERT AND ORIENTED X3. BREATHING EVEN AND UNLABORED. PATIENT DENIES ANY ACUTE RESPIRATORY DISTRESS, NO ACUTE PAIN. PATIENT HAS NO IV ACCESS, UNSUCCESSFULLY ATTEMPTED X3. WILL HAVE ANOTHER NURSE TRY. TELE IS ON AFIB 100. ATTENDED TO PATIENTS NEEDS. SAFETY PRECAUTION IN PLACE. BED IN LOWEST POSITION LOCKED, AND CALL LIGHT KEPT WITHIN REACH. WILL ENDORSE TO ONCOMING NURSE.
--- NOTE | 2019-03-30 07:30 | NUR ---
KENO MANAGER OPENING NOTES PATIENT AWAKE AND RESTING IN BED, SUPINE POSITION. ON 5L NC. NO SIGNS OF ACUTE RESPIRATORY DISTRESS. WHEEZING HEARD IN LUNGS BILATERALLY. VITAL SIGNS - BP: 139/68 HR: 63 RR: 20 TEMP: 96.3 SPO2: 94. NO IV ACCESS. PATIENT CALL LIGHT WITHIN REACH. WILL CONTINUE TO MONITOR.
[2019-03-30] MEDS: methylPREDNISolone SOD SUCC 125 MG/2ML VIAL IV SCH ×3 (09:00→17:28)
--- NOTE | 2019-03-30 09:00 | NUR ---
SAILING MASTER NOTES SOLUMEDROL NOT GIVEN TO PATIENT. NO IV ACCESS PRESENT. PATIENT REFUSES NEW IV LINE TO BE INSERTED. ANTHONY GARCES.
[2019-03-30] MEDS: DOCUSATE SODIUM 100 MG CAPSULE PO SCH (09:42)
[2019-03-30] MEDS: DIVALPROEX SODIUM 125 MG CAP.SPRINK PO SCH ×2 (09:42→20:17)
[2019-03-30] MEDS: RIFAXIMIN 200 MG TABLET PO SCH ×3 (09:42→17:28)
[2019-03-30] MEDS: risperiDONE 0.25 MG TABLET PO SCH ×2 (09:42→20:18)
[2019-03-30 09:58] LABS: ABG BASE EXCESS 9.4 mmol/L; ABG OXYGEN SATURATION 94.6 % (92.0-98.5); ABG PCO2 71.7 mmHg (35.0-45.0); ABG PH 7.339 (7.350-7.450); ABG PO2 80.1 mmHg (75.0-100.0); AaDO2 122.6 mmHg; COHb 0.4 % (0.5-1.5); MetHb 0.5 % (0.0-1.5); O2Hb 93.7 % (94.0-97.0); SITE, ABG Left Radial; VENT MODE, BG 5LPM NC
[2019-03-30] MEDS: LEVOTHYROXINE SODIUM 50 MCG TABLET PO SCH (10:39)
--- NOTE | 2019-03-30 11:12 | NUR ---
WOUND CARE CONSULT: PT FOLLOWED BY PLASTIC SURGERY TEAM FOR WOUND CARE. DEFER TO SURGICAL TEAM FOR WOUND TREATMENT PLAN. WILL SEE PRN. DISCUSSED SKIN PROTECTION WITH NURSING STAFF. PT ON KENNY ISOFLEX LOW AIRLOSS BED. CURRENT CASSIDY SCORE IS 15. Addendum: 03/30/19 at 1115 by TINY ANGUIANO WNDNU PT ALSO FOLLOWED BY PODIATRY FOR WOUND CARE. DEFER TO SURGICAL AND PODIATRY TEAMS FOR WOUND TREATMENT PLAN.
--- NOTE | 2019-03-30 12:11 | NUR ---
RN FAMILY NOTES RECEIVED ORDER FROM LUIS FOR MIDLINE INSERTION. NOTED AND CARRIED OUT.
--- NOTE | 2019-03-30 12:23 | NUR ---
MACHINE PACK ASSEMBLER NOTES PATIENT COMPLAINING OF RIGHT ELBOW PAIN RATED 5/10. LUIS MADE AWARE AND ORDERED RIGHT ELBOW XRAY. WILL CARRY OUT ORDER
--- NOTE | 2019-03-30 12:29 | NUR ---
PRODUCE DEPARTMENT MANAGER NOTES PATIENT COMPLAINING OF RIGHT ELBOW PAINT RATED 5/10. LIUS MADE AWARE AND ORDERED TYLENOL 625MG PO Q6H. WILL CARRY OUT ORDER.
[2019-03-30] MEDS ORDERED: ACETAMINOPHEN 325 MG TABLET PO PRN (12:30)
[2019-03-30] MEDS ORDERED: ACETAMINOPHEN 650 MG/20.3 ML UDC PO PRN (12:30)
[2019-03-30] MEDS: LEVOFLOXACIN 500 MG /D5W 100ML 500 MG in PREMIX 1 EA IV SCH ×2 (12:34→15:18)
--- NOTE | 2019-03-30 12:41 | NUR ---
TELE/RN NOTE THE PATIENT COMPLAINS OF RIGHT ELBOW PAIN 5 BUT REFUSES TO TAKE PAIN MEDICATION DESPITE EXPLAINING RISKS AND BENEFITS MULTIPLE TIMES.
--- NOTE | 2019-03-30 13:02 | NUR ---
TELE/RN NOTE LEVAQUIN DUE AT 1200 IS NOT ADMINISTERED AT THIS TIME DUE TO PATIENT NOT HAVING IV LINE. WAITING FOR MIDLINE INSERTION. NO LUIS IS MADE AWARE.
[2019-03-30] MEDS: WARFARIN SODIUM 2 MG TABLET PO SCH (17:27)
--- NOTE | 2019-03-30 18:22 | NUR ---
SALESPERSON PETS AND PET SUPPLIES CLOSING NOTES PATIENT RESTING IN BED, SEMI FOWLERS POSITION; A&O 1-2; ON 5L NC; NO S/S OF ACUTE RESPIRATORY DISTRESS OR COMPLAINTS OF PAIN. VITAL SIGNS - BP: 120/73 HR: 98 RR: 20 TEMP: 98 SPO2: 94; TELE MONITOR READING IRREGULAR A-FIB; BED ALARM ON AND PATIENT CALL LIGHT WITHIN REACH; WILL ENDORSE TO PROFESSIONAL SERVICES SPECIALIST NURSE TO FOLLOW PLAN OF CARE.
--- NOTE | 2019-03-30 19:05 | NUR ---
BEAD WIRE INSULATOR OPENING NOTES RECEIVED PATIENT IN BED AWAKE ALERT AND ORIENTED X3, VERBALLY RESPONSIVE, RESPIRATIONS EVEN AND UNLABORED WITH EQUAL RISE AND FALL OF CHEST, DENIES ANY PAIN OR DISCOMFORT AT THIS TIME, ON CARDIAC TELE MONITOR A.FIB 103. NO DISTRESS PRESENT, IV SITE TO LEFT FA #18 G INTACT AND PATENT, NO REDNESS, NO INFILTRATION PRESENT, ORIENTED TO STAFF AND CALL LIGHT AND KEPT WITHIN REACH, SAFETY PRECAUTIONS IN PLACE, LOW BED AND LOCKED, ALL NEEDS ATTENDED AT THIS TIME WILL CONTINUE TO MONITOR.
--- NOTE | 2019-03-30 20:00 | NUR ---
EMT/DISPATCHER NOTED NOCTURNAL BIPAP OFFERED ORDERED PER RT, DESPITE EDUCATION PATIENT REFUSED X3 STATES " I DONT WANT THAT THING". WILL CONTINUE TO MONITOR AT THIS TIME REMAINS FREE FROM ANY RESPIRATORY DISTRESS.
--- NOTE | 2019-03-30 23:07 | NUR ---
FISH NET MAKER NOTES PATIENT COMPLAINT OF "FEELING UNCOMFORTABLE GENERALIZE PAIN " TYLENOL PRN OFFERED AND GIVEN ORDERED PATIENT REPOSITIONED FOR COMFORT. WILL CONTINUE TO MONITOR.
[2019-03-31] VITALS: BP 105/79
[2019-03-31] MEDS: METOPROLOL TARTRATE 25 MG TABLET PO SCH ×5 (00:20→23:19)
[2019-03-31 00:40] VITALS: BP 105/79
[2019-03-31] MEDS: ALBUTEROL FS 2.5 MG/3 ML VIAL.NEB NEB SCH ×6 (03:26→23:29)
[2019-03-31 04:30] VITALS: BP 125/91
[2019-03-31 04:40] VITALS: BP 125/91
--- NOTE | 2019-03-31 06:45 | NUR ---
QUALITY ENGINEER MEDICAL DEVICE CLOSING NOTES PATIENT IN BED AWAKE ALERT AND ORIENTED X3, VERBALLY RESPONSIVE, RESPIRATIONS EVEN AND UNLABORED WITH EQUAL RISE AND FALL OF CHEST, DENIES ANY PAIN OR DISCOMFORT AT THIS TIME, ON CARDIAC TELE MONITOR A.FIB 96. NO DISTRESS PRESENT, IV SITE MIDLINE TO LEFT FA #18 G INTACT AND PATENT, NO REDNESS, NO INFILTRATION PRESENT. REFUSED BIPAP. EKG RESULTS RELAYED TO HOSPITALIST. NO NEW ORDERS AT THIS TIME. ALL DUE MEDICATION GIVEN ORDERED. NO ADVERSE REACTIONS NOTED. CALL LIGHT KEPT WITHIN REACH, SAFETY PRECAUTIONS IN PLACE, LOW BED AND LOCKED, ALL NEEDS ATTENDED AT THIS TIME WILL CONTINUE TO MONITOR. WILL ENDORSE TO NEXT SHIFT.
[2019-03-31 07:19] LABS: BASOPHILS % (AUTO) 0.1 % (0.0-2.0); EOSINOPHILS % (AUTO) 0.1 % (0.0-6.0); HEMATOCRIT 37 % (33-45); HEMOGLOBIN 11.6 g/dL (11.5-14.8); LYMPHOCYTES # (AUTO) 0.4 /CMM (0.8-4.8); MEAN CORPUSCULAR HGB CONC 32 g/dl (31.0-36.0); MEAN CORPUSCULAR VOLUME 93 fL (82-100); MONOCYTES # (AUTO) 0.4 /CMM (0.1-1.30); MONOCYTES % (AUTO) 6.3 % (2.0-12.0); NEUTROPHILS # (AUTO) 5.2 /CMM (1.8-8.9); NEUTROPHILS % (AUTO) 86.5 % (43.0-81.0); PLATELET COUNT (AUTO) 122 /CMM (150-450); RED BLOOD CELL COUNT(AUTO) 3.94 MIL/uL (4.0-5.2); WHITE BLOOD COUNT (AUTO) 6.1 K/uL (4.3-11.0)
--- NOTE | 2019-03-31 07:30 | NUR ---
TELE/RN Opening note Patient received resting in bed, A/o x 2-3, confused at times, reoriented to reality. Saturating at 94% on 4l NC. Tele monitor A-fib 101. HOB elevated in high fowlers. Midline noted in left brachial clean and patent. Skin assessed. Bed is in lowest position, side rails x3 in upright position. Call light is within reach. Safety, fall and aspiration precautions initiated. Will continue with current plan of care.
[2019-03-31 07:43] LABS: CALCIUM, SERUM 8.1 mg/dL (8.5-10.1); CREATININE 0.8 mg/dL (0.6-1.3); MAGNESIUM 2.1 mg/dL (1.8-2.4); POTASSIUM 4.4 mmol/L (3.5-5.1)
[2019-03-31 08:00] VITALS: BP 153/96
[2019-03-31] MEDS: LEVOTHYROXINE SODIUM 50 MCG TABLET PO SCH (08:33)
[2019-03-31] MEDS: DIVALPROEX SODIUM 125 MG CAP.SPRINK PO SCH ×2 (08:33→21:55)
[2019-03-31] MEDS: DOCUSATE SODIUM 100 MG CAPSULE PO SCH (08:34)
[2019-03-31] MEDS: risperiDONE 0.25 MG TABLET PO SCH ×2 (08:34→21:55)
[2019-03-31] MEDS: DILTIAZEM HCL CD 240 MG PO SCH (08:34)
[2019-03-31] MEDS: RIFAXIMIN 200 MG TABLET PO SCH ×3 (08:36→17:22)
[2019-03-31] MEDS: methylPREDNISolone SOD SUCC 125 MG/2ML VIAL IV SCH ×2 (08:44→17:14)
[2019-03-31] MEDS: LEVOFLOXACIN 500 MG /D5W 100ML 500 MG in PREMIX 1 EA IV SCH (12:27)
[2019-03-31] MEDS: WARFARIN SODIUM 1 MG TABLET PO SCH (17:14)
--- NOTE | 2019-03-31 19:03 | NUR ---
MS/RN Closing note PAtient is resting in bed, A/O x3, confused at times, oriented to reality. Patient is saturating at 94% on 4L NC, HOB in high-fowlers. Midline in left brachial s/l is clean and patent. All patient needs met, all due meds given. patient kept clean and dry and skin care provided. Bed is in lowest position, side rails x3 in upright position, call light is within reach and patient is aware of how to call for assistance when needed. Safety, fall and aspiration precautions enforced. Will endorse to metal bonding crib attendant.
--- NOTE | 2019-03-31 19:10 | NUR ---
MS RN NOTE RECEIVED PT IN STABLE CONDITION, A/O X2-3, AWAKE IN BED. NO SIGNS OF SOB OR DISTRESS, NO C/O PAIN OR N/V. L BRACHIAL MIDLINE IN PLACE S/L. ALL CURRENT NEEDS ATTENDED TO. BED LOW, LOCKED, UPPER RAILS UP, AND CALL LIGHT WITHIN REACH. WILL CONT. TO MONITOR.
[2019-03-31 20:00] VITALS: BP 113/70
--- NOTE | 2019-03-31 22:00 | NUR ---
MS RN NOTE PT ATTEMPTED TO USE BIPAP, ONLY WANTED IT FOR 1 HR. RT AT BEDSIDE, REMOVED BIPAP AND RETURNED TO NASAL CANNULA 4L. TOLERATING WELL. WILL CONT. TO MONITOR.
--- NOTE | 2019-03-31 22:00 | NUR ---
RT NOTE PATIENT ONLY TOLERATED BIBPAP FOR ONE HOUR. NO SOB NOTED. PLACED PATIENT BACK ON 4 L NASAL CANNULA.
--- NOTE | 2019-03-31 23:30 | NUR ---
RT NOTE PATIENT REFUSED BREATHING TREATMENT. NO SOB NOTED. Addendum: 03/31/19 at 2331 by ROBBIE VAZQUEZ RT Amended: Links added.
[2019-04-01] MEDS: ALBUTEROL FS 2.5 MG/3 ML VIAL.NEB NEB SCH ×6 (04:02→23:10)
[2019-04-01] MEDS: METOPROLOL TARTRATE 25 MG TABLET PO SCH ×3 (05:30→17:05)
--- NOTE | 2019-04-01 06:15 | NUR ---
MS RN NOTE PT REMAINS IN STABLE CONDITION, A/O X2-3, AWAKE IN BED. NO SIGNS OF SOB OR DISTRESS, NO C/O PAIN OR N/V. L BRACHIAL MIDLINE IN PLACE S/L. ALL CURRENT NEEDS ATTENDED TO. BED LOW, LOCKED, UPPER RAILS UP, AND CALL LIGHT WITHIN REACH. WILL CONT. TO MONITOR AND ENDORSE TO NEXT SHIFT FOR HUMBERTO.
[2019-04-01 06:32] LABS: BASOPHILS % (AUTO) 0.1 % (0.0-2.0); EOSINOPHILS % (AUTO) 0.1 % (0.0-6.0); HEMATOCRIT 37 % (33-45); HEMOGLOBIN 11.9 g/dL (11.5-14.8); LYMPHOCYTES # (AUTO) 0.5 /CMM (0.8-4.8); LYMPHOCYTES % (AUTO) 6.9 % (20.0-44.0); MEAN CORPUSCULAR HGB CONC 32 g/dl (31.0-36.0); MEAN CORPUSCULAR VOLUME 92 fL (82-100); MONOCYTES # (AUTO) 0.5 /CMM (0.1-1.30); MONOCYTES % (AUTO) 6.6 % (2.0-12.0); NEUTROPHILS # (AUTO) 6.5 /CMM (1.8-8.9); NEUTROPHILS % (AUTO) 86.3 % (43.0-81.0); PLATELET COUNT (AUTO) 125 /CMM (150-450); RED BLOOD CELL COUNT(AUTO) 4.01 MIL/uL (4.0-5.2); WHITE BLOOD COUNT (AUTO) 7.6 K/uL (4.3-11.0)
[2019-04-01 06:57] LABS: CALCIUM, SERUM 8.5 mg/dL (8.5-10.1); CREATININE 0.8 mg/dL (0.6-1.3); MAGNESIUM 2.5 mg/dL (1.8-2.4); PHOSPHORUS 2.5 mg/dL (2.5-4.9); POTASSIUM 4.4 mmol/L (3.5-5.1)
--- NOTE | 2019-04-01 07:15 | NUR ---
RN OPENING NOTE PT WAS RECEIVED IN BED AT LOWEST AND LOCKED POSITION WITH SIDE RAILS X2, A/O X2-3 WITH PERIODS OF CONFUSION, BREATHING EVEN AND UNLABORED WITH NO S/S OF ANY DISTRESS OR PAIN, IV IS PATENT AND INTACT, SAFETY PRECAUTIONS IN PLACE, CALL LIGHT IN REACH, WILL MONITOR ACCORDINGLY
[2019-04-01 08:00] VITALS: BP 122/63
[2019-04-01] MEDS: LEVOTHYROXINE SODIUM 50 MCG TABLET PO SCH (08:06)
[2019-04-01] MEDS: risperiDONE 0.25 MG TABLET PO SCH ×2 (08:06→21:15)
[2019-04-01] MEDS: DOCUSATE SODIUM 100 MG CAPSULE PO SCH (08:06)
[2019-04-01] MEDS: DIVALPROEX SODIUM 125 MG CAP.SPRINK PO SCH ×2 (08:06→21:15)
[2019-04-01] MEDS: methylPREDNISolone SOD SUCC 125 MG/2ML VIAL IV SCH ×2 (08:06→17:04)
[2019-04-01] MEDS: RIFAXIMIN 200 MG TABLET PO SCH ×3 (08:07→17:04)
[2019-04-01] MEDS: DILTIAZEM HCL CD 240 MG PO SCH (08:07)
[2019-04-01] MEDS: HYDROCODONE/APAP 5/325MG 1 EACH TABLET PO PRN ×3 (09:46→22:45)
[2019-04-01 11:49] LABS: ABG BASE EXCESS 4.6 mmol/L; ABG OXYGEN SATURATION 89.7 % (92.0-98.5); ABG PCO2 52.2 mmHg (35.0-45.0); ABG PH 7.388 (7.350-7.450); AaDO2 104.1 mmHg; COHb 0.2 % (0.5-1.5); MetHb 0.6 % (0.0-1.5); SITE, ABG Left Radial; VENT MODE, BG nasal cannula
[2019-04-01] MEDS: IPRATROPIUM NEB FS 0.5 MG/2.5 ML AMPUL.NEB NEB SCH ×4 (12:00→23:10)
--- NOTE | 2019-04-01 12:00 | NUR ---
RN NOTE ABG DONE BY RT AND CALL BACK WAS RECEIVED, I WAS NOTIFIED BY RT THAT SHE SHOWED ABG TO AND THAT HE STATED TO CONTINUE CURRENT TX AT THIS TIME
[2019-04-01] MEDS: LEVOFLOXACIN 500 MG /D5W 100ML 500 MG in PREMIX 1 EA IV SCH (12:07)
[2019-04-01 16:00] VITALS: BP 119/82
[2019-04-01] MEDS: WARFARIN SODIUM 1 MG TABLET PO SCH (17:00)
--- NOTE | 2019-04-01 17:00 | NUR ---
RN NOTE HOSPITALIST ELIEZER SMITH INFORMED OF PT/INR VALUES WHICH WERE PT OF 40.2 AND INR 4.08, PER HOSPITALIST HOLD WARFARIN.
--- NOTE | 2019-04-01 17:44 | NUR ---
RN NOTE PT REFUSING TO BE REPOSITIONED, HAVING HER LINEN CHANGED, AND CLEANED AT THIS TIME
--- NOTE | 2019-04-01 18:09 | NUR ---
RN CLOSING NOTE PT IN BED AT LOWEST AND LOCKED POSITION WITH SIDE RAILS X2, A/O X2 BREATHING EVEN AND UNLABORED ON NC WITH NO S/S OF DISTRESS OR PAIN, IV IS PATENT AND INTACT, PT REFUSED TO FOR LINEN AND HERSELF TO BE CLEANED AND CHANGED, SAFETY PRECAUTIONS IN PLACE, CALL LIGHT IN REACH, ALL NEEDS ATTENDED TO, WILL ENDORSE TO NIGHT RN FOR HUMBERTO
--- NOTE | 2019-04-01 20:33 | NUR ---
MS/RN AT 1930, RECEIVED PATIENT ON BED AWAKE, ALERT, COMFORTABLE, NO C/O PAIN NO DISTRESS NOTED, SITTER AT BEDSIDE, WILL MONITOR.
[2019-04-01 20:37] VITALS: BP 129/68
--- NOTE | 2019-04-01 23:28 | NUR ---
RT NOTES: PT REFUSING BIPAP. NO RESP DISTRESS AT THIS MOMENT.
--- NOTE | 2019-04-01 23:47 | NUR ---
MS/RN PATIENT IS SLEEPING AT THIS TIME, APPEAR COMFORTABLE, NO DISTRESS NOTED, CALL LIGHT IN REACH. WILL MONITOR.
--- NOTE | 2019-04-02 00:22 | NUR ---
RT NOTES: PT PLACED ON BIPAP ON ORDERED SETTINGS. NO SIGNS OF RESP DISTRESS NOTED AT THIS TIME. WILL CONT TO MONITOR. Addendum: 04/02/19 at 0044 by LINCOLN FLORES RT Amended: Links added.
[2019-04-02] MEDS: ALBUTEROL FS 2.5 MG/3 ML VIAL.NEB NEB SCH ×6 (04:13→23:17)
[2019-04-02] MEDS: IPRATROPIUM NEB FS 0.5 MG/2.5 ML AMPUL.NEB NEB SCH ×6 (04:13→23:17)
--- NOTE | 2019-04-02 05:59 | NUR ---
MS/RN MORNING CARE WAS DONE AT 0500, TOTAL LINEN CHANGE DONE, BED BATH DONE, REPOSITIONED TO COMFORT.
[2019-04-02] MEDS: METOPROLOL TARTRATE 25 MG TABLET PO SCH ×5 (06:00→23:51)
--- NOTE | 2019-04-02 08:00 | NUR ---
MS RN NOTES PATIENT IN BED RESTING NO SOB OR ACUTE DISTRESS NOTED. PATIENT ALERT, ORIENTED X3. BED IN LOW LOCKED POSITION. CALL LIGHT WITHIN REACH. MIDLINE INTACT PATENT. WILL CONTINUE TO MONITOR.
[2019-04-02 08:05] VITALS: BP 126/72
[2019-04-02] MEDS: LEVOTHYROXINE SODIUM 50 MCG TABLET PO SCH (08:05)
[2019-04-02] MEDS: methylPREDNISolone SOD SUCC 125 MG/2ML VIAL IV SCH ×2 (08:05→16:14)
[2019-04-02] MEDS: DIVALPROEX SODIUM 125 MG CAP.SPRINK PO SCH ×2 (08:05→20:09)
[2019-04-02] MEDS: DILTIAZEM HCL CD 240 MG PO SCH (08:05)
[2019-04-02] MEDS: DOCUSATE SODIUM 100 MG CAPSULE PO SCH (08:05)
[2019-04-02] MEDS: RIFAXIMIN 200 MG TABLET PO SCH ×3 (08:08→17:03)
[2019-04-02] MEDS ORDERED: LEVOFLOXACIN (500MG) 500 MG TABLET PO SCH (09:00)
[2019-04-02] MEDS: risperiDONE 0.25 MG TABLET PO SCH ×2 (09:44→20:09)
[2019-04-02 12:46] LABS: BASOPHILS # (AUTO) 0.1 /CMM (0.0-0.2); BASOPHILS % (AUTO) 1.2 % (0.0-2.0); EOSINOPHILS % (AUTO) 0.8 % (0.0-6.0); HEMATOCRIT 37 % (33-45); HEMOGLOBIN 11.9 g/dL (11.5-14.8); LYMPHOCYTES # (AUTO) 0.4 /CMM (0.8-4.8); MEAN CORPUSCULAR HGB CONC 33 g/dl (31.0-36.0); MEAN CORPUSCULAR VOLUME 92 fL (82-100); MONOCYTES # (AUTO) 0.5 /CMM (0.1-1.30); MONOCYTES % (AUTO) 6.8 % (2.0-12.0); NEUTROPHILS # (AUTO) 6.7 /CMM (1.8-8.9); NEUTROPHILS % (AUTO) 86.2 % (43.0-81.0); PLATELET COUNT (AUTO) 120 /CMM (150-450); WHITE BLOOD COUNT (AUTO) 7.7 K/uL (4.3-11.0)
[2019-04-02 13:00] LABS: CALCIUM, SERUM 8.7 mg/dL (8.5-10.1); CREATININE 0.9 mg/dL (0.6-1.3)
[2019-04-02 14:31] LABS: BAND % (MANUAL) 3 % (0.0-5.0); LYMPHOCYTES % (MANUAL) 6 % (16-48); MONOCYTES % (MANUAL) 6 % (0-11.0); NEUTROPHILS % (MANUAL) 85 (42-76)
[2019-04-02] MEDS: HYDROCODONE/APAP 5/325MG 1 EACH TABLET PO PRN ×2 (16:14→21:56)
--- NOTE | 2019-04-02 16:30 | NUR ---
MS RN NOTES SPOKE TO ELIEZER CRUZ MADE AWARE OF INR LEVEL AND ALSO YESTERDAYS INR LEVEV. ALSO THAT COUMADIN WAS HELD YESTERDAY SINCE LEVEL WAS HIGHER THEN THERAPEUTIC RANGE. COUMADIN WAS CHANGED TO 6MG DAILY. ORDERS NOTED AND CARRIED OUT.
[2019-04-02] MEDS: WARFARIN SODIUM 2 MG TABLET PO SCH (17:01)
--- NOTE | 2019-04-02 18:23 | NUR ---
MS RN NOTES PATIENT IN BED RESTING NO SOB OR ACUTE DISTRESS NOTED. ALL DUE MEDICATIONS ADMINISTERED. ALL NEEDS MET. NO ACUTE CHANGES NOTED DURING SHIFT. MIDLINE INTACT PATENT. WILL ENDORSE CARE TO PM SHIFT.
--- NOTE | 2019-04-02 19:33 | NUR ---
MS RN OPENING NOTE RECEIVED PATIENT IN BED. A/O X3. ON OXYGEN 2L/MIN VIA NASAL CANNULA. RESPIRATIONS ARE EVEN AND UNLABORED. NO S/S SOB NOTED. DENIES PAIN AT THIS TIME. IN NO APPARENT DISTRESS. IV ACCESS IN EDVIN MIDLINE PATENT AND SALINE LOCKED. SITTER AT BEDSIDE. BED IS LOW AND LOCKED, HOB ELEVATED 70 DEGREES, SIDE RAILS UP X2, CALL LIGHT WITHIN REACH. WILL CONTINUE TO MONITOR.
[2019-04-02 19:39] VITALS: BP 122/68
[2019-04-02 20:00] VITALS: BP 122/68
[2019-04-02 20:07] LABS: APPEARANCE,URINE CLEAR (CLEAR); BILIRUBIN,URINE NEGATIVE (NEGATIVE); BLOOD, URINE NEGATIVE Ery/uL (NEGATIVE); COLOR,URINE YELLOW (YELLOW); KETONES,URINE NEGATIVE (NEGATIVE); NITRITE, URINE NEGATIVE (NEGATIVE); PROTEIN,URINE TRACE mg/dl (NEGATIVE); UGLUCOSE NEGATIVE (NEGATIVE); UROBILINOGEN,URINE 0.2 EU/dL (0.2)
[2019-04-02 20:18] LABS: BACTERIA,URINE Few /HPF (None Seen); LEUKOCYTE ESTERASE ,URINE TRACE (NEGATIVE); RBC,URINE 0-2 /HPF (0-2); SQUAMOUS EPITHELIAL CELL,UR Few /HPF (None Seen)
--- NOTE | 2019-04-02 22:00 | NUR ---
MS RN NOTE ADMINSITERED PRN NORCO 5/325 FOR GENERALIZED PAIN. WILL CONTINUE TO MONITOR.
--- NOTE | 2019-04-02 23:48 | NUR ---
MS RN NOTE RT CAME TO PLACE PATIENT ON BIPAP. PATIENT WAS ON FOR 5 MINUTES BUT REQUESTED TO BE TAKEN OFF, REFUSED FOR THE REST OF THE NIGHT. RT WILL TRY AGAIN LATER TONIGHT.
--- NOTE | 2019-04-02 23:50 | NUR ---
RT NOTE PT REFUSED BIPAP AT THIS TIME. PT TAKEN OF BIPAP. NO SOB NOTED. GUSTAVO VORA AWARE. Addendum: 04/03/19 at 0024 by LLOYD ROLLINS RT CORRECT NOTE PT REQUESTED TO BE TAKEN OFF BIPAP. PT TAKEN OFF BIPAP. PLACED PT ON 3L NC. NO SOB NOTED. GUSTAVO GARCES.
[2019-04-03] MEDS: IPRATROPIUM NEB FS 0.5 MG/2.5 ML AMPUL.NEB NEB SCH ×5 (03:18→19:31)
[2019-04-03] MEDS: ALBUTEROL FS 2.5 MG/3 ML VIAL.NEB NEB SCH ×5 (03:18→19:31)
[2019-04-03] MEDS: METOPROLOL TARTRATE 25 MG TABLET PO SCH ×3 (05:43→17:16)
--- NOTE | 2019-04-03 06:52 | NUR ---
MS RN CLOSING NOTE PATIENT IN BED. A/O X3. ON OXYGEN 2L/MIN VIA NASAL CANNULA. RESPIRATIONS ARE EVEN AND UNLABORED. NO EPISODES OF SOB NOTED. MANAGED PAIN WITH NORCO. NO DISTRESS NOTED. IV ACCESS MAINTAINED IN EDVIN MIDLINE PATENT AND SALINE LOCKED. SITTER AT BEDSIDE. BED IS LOW AND LOCKED, HOB ELEVATED 70 DEGREES, SIDE RAILS UP X2, CALL LIGHT WITHIN REACH. WILL ENDORSE TO NEXT SHIFT.
--- NOTE | 2019-04-03 07:15 | NUR ---
MS/RN NOTE THE PATIENT IS RECEIVED IN BED. PATIENT IS ALERT AND ORIENTED X3. DENIES PAIN AT THIS TIME. RECEIVING OXYGEN AT 3L/MIN VIA NASAL CANNULA AND SATURATION IS AT 95%. PATIENT IN STABLE CONDITION. SITTER AT THE BEDSIDE. EDVIN MIDLINE G 18 PATENT AND SALINE LOCKED. BED LOW AND LOCKED. SIDE RAILS UP X3. CALL LIGHT WITHIN REACH. WILL CONTINUE TO MONITOR.
[2019-04-03 08:00] VITALS: BP 108/66
[2019-04-03] MEDS: methylPREDNISolone SOD SUCC 125 MG/2ML VIAL IV SCH ×2 (08:36→17:16)
[2019-04-03] MEDS: LEVOTHYROXINE SODIUM 50 MCG TABLET PO SCH (08:37)
[2019-04-03] MEDS: RIFAXIMIN 200 MG TABLET PO SCH ×3 (08:37→17:15)
[2019-04-03] MEDS: DOCUSATE SODIUM 100 MG CAPSULE PO SCH (08:37)
[2019-04-03] MEDS: DIVALPROEX SODIUM 125 MG CAP.SPRINK PO SCH (08:37)
[2019-04-03] MEDS: risperiDONE 0.25 MG TABLET PO SCH (08:37)
[2019-04-03] MEDS: DILTIAZEM HCL CD 240 MG PO SCH (08:39)
[2019-04-03] MEDS ORDERED: LEVO500T75 PO (12:47)
[2019-04-03] MEDS ORDERED: IPRA0.2S9 NEB (12:47)
[2019-04-03] MEDS ORDERED: DILT240C88 PO (12:47)
[2019-04-03] MEDS ORDERED: LEVO50TA PO (12:47)
[2019-04-03] MEDS ORDERED: METO25TA20 PO (12:47)
[2019-04-03] MEDS ORDERED: WARF2TAB57 PO (12:47)
[2019-04-03] MEDS ORDERED: METH4TAB17 PO (12:47)
[2019-04-03 16:00] VITALS: BP 134/76
--- NOTE | 2019-04-03 16:03 | NUR ---
MS/RN note Received PT INR order stat in order from ANTHONY Velazquez (the patient is on Coumadin). Noted and carried out.
[2019-04-03] MEDS: WARFARIN SODIUM 2 MG TABLET PO SCH (17:34)
--- NOTE | 2019-04-03 18:41 | NUR ---
MS/RN NOTE THE PATIENT IS ALERT AND ORIENTED X3. DENIES PAIN. RECEIVING OXYGEN AT 3L/MIN VIA NASAL CANNULA AND SATURATION IS AT 95%. DENIES SOB. LEFT UPPER ARM MIDLINE G 18 PATENT AND SALINE LOCKED. BED LOW AND LOCKED. SIDE RAILS UP X3. CALL LIGHT WITHIN REACH. WILL ENDORSE TO RAIL TRANSPORTATION OPERATOR.
--- NOTE | 2019-04-03 19:15 | NUR ---
MS RN NOTES RECEIVED ON BED A/O X3,BREATHING EASY,NO SOB,ABLE TO VERBALIZED NEEDS,FOR DISCHARGE TO SNF TONIGHT,AWAITING FOR SUPERVISING EDITOR NEWS REEL BY AMBULANCE.DENIES DISCOMFORTS AT THE MOMENT.WILL CHECK VITAL SIGNS BEFORE DISCHARGE.IN NO ACUTE DISTRESS.
[2019-04-03 19:35] VITALS: BP 150/78
--- NOTE | 2019-04-03 20:20 | NUR ---
MS RN NOTES EDITOR PUBLICATIONS BY AMBULANCE,DISCHARGE TO [facility] WITH O2 AT 3L/NC.VITAL SIGNS STABLE.LEFT UPPER ARM MIDLINE REMOVED,SITE COVERED WITH DRY GAUZE,NO BLEEDING.
[2019-05-01] MEDS ORDERED: PRED20TA PO ×2 (17:19)
[2019-05-01] MEDS ORDERED: Cefuroxime Axetil PO (17:19)
[2019-05-01] MEDS ORDERED: PRED5TAB48 PO ×2 (17:19)
[2019-05-01] MEDS ORDERED: DOXY100T2 PO (17:19)
== END 2019-04-03 20:20 | DRG 193 ==
LOC: ER 15:53 → TELE 17:49 → MED 03-29 13:10 → TELE 03-29 13:54 → MED 03-31 08:23
PROVIDERS: ADMIT Nurse Practitioner Acute Care; ATTEND Nurse Practitioner Acute Care
PROC: 05HC33Z Insertion of Infusion Device into Left Basilic Vein, Percutaneous Approach (ICD-10-PCS; 2019-03-30)
PROC: B54NZZA Ultrasonography of Left Upper Extremity Veins, Guidance (ICD-10-PCS; 2019-03-30)
PROC: 5A09357 Assistance with Respiratory Ventilation, Less than 24 Consecutive Hours, Continuous Positive Airway Pressure (ICD-10-PCS; principal; 2019-03-31)
DX: J15.9 Unspecified bacterial pneumonia (principal); N17.0 Acute kidney failure with tubular necrosis; J96.21 Acute and chronic respiratory failure with hypoxia; J96.22 Acute and chronic respiratory failure with hypercapnia; I50.33 Acute on chronic diastolic (congestive) heart failure; E87.4 Mixed disorder of acid-base balance; J44.0 Chronic obstructive pulmonary disease with (acute) lower respiratory infection; E66.2 Morbid (severe) obesity with alveolar hypoventilation; I11.0 Hypertensive heart disease with heart failure; K72.90 Hepatic failure, unspecified without coma; K74.60 Unspecified cirrhosis of liver; I25.10 Atherosclerotic heart disease of native coronary artery without angina pectoris; D69.6 Thrombocytopenia, unspecified; I48.91 Unspecified atrial fibrillation; F03.90 Unspecified dementia, unspecified severity, without behavioral disturbance, psychotic disturbance, mood disturbance, and anxiety; E78.5 Hyperlipidemia, unspecified; E03.9 Hypothyroidism, unspecified; Z68.28 Body mass index [BMI] 28.0-28.9, adult; S61.411A Laceration without foreign body of right hand, initial encounter; X58.XXXA Exposure to other specified factors, initial encounter; Y92.89 Other specified places as the place of occurrence of the external cause; I73.9 Peripheral vascular disease, unspecified; D69.2 Other nonthrombocytopenic purpura; M20.42 Other hammer toe(s) (acquired), left foot; M20.41 Other hammer toe(s) (acquired), right foot; S90.421A Blister (nonthermal), right great toe, initial encounter; Z95.2 Presence of prosthetic heart valve; Z79.01 Long term (current) use of anticoagulants; F39 Unspecified mood [affective] disorder
CPT/HCPCS: 36415; 36600; 71045-TC; 73070-TC; 80048-TC; 80053-TC; 80061-TC; 80076-TC; 81000-TC; 82140-TC; 82803-TC; 83540-TC; 83605-TC; 83735-TC; 83880; 84100-TC; 84439-TC; 84443-TC; 84484-TC; 85025-TC; 85610-TC; 87040-TC; 87081-TC; 93971-TC; 94660; 94799-TC; 97530-TC; A4216; G0378; J0696; J1940; J1956; J2930; J3490; J7030; J7060

== ENCOUNTER 2019-04-27 15:12 | Inpatient (IN) | payer MEDICARE, OTHER ==
[~2019-04-27] VITALS: Ht 165.1 cm; Wt 91.2 kg
[~2019-04-27 15:12] MED LIST changes: +ACET-868 PO; +AMIN30LI2 PO; -DICL100G16 TP; +DILT240C88 PO; +DIVA125C2 PO; +DOCU-141 PO; +IBUP-1955 PO; +IPRA0.2S9 NEB; -IPRA3AMP23 IH; +LEVO500T75 PO; +LEVO50TA PO; -MAG30ORA PO; +MAGN400O6 PO; +METH4TAB17 PO; -MULT-439 PO; -NEUTRA-PHOS PO; -NITR100C15 PO; -PANT40TA2 PO; -PROT946L PO; +RISP0.2515 PO; -WARF-58 PO; +WARF2TAB57 PO; +WARF6TAB23 PO
[2019-04-27] MEDS ORDERED: IPRATROPIUM NEB FS 0.5 MG/2.5 ML AMPUL.NEB NEB ONE (15:30)
[2019-04-27] MEDS ORDERED: methylPREDNISolone SOD SUCC 125 MG/2ML VIAL IV ONE (15:30)
[2019-04-27] MEDS ORDERED: ALBUTEROL FS 2.5 MG/3 ML VIAL.NEB NEB ONE (15:30)
[2019-04-27 15:34] LABS: BASOPHILS % (AUTO) 0.6 % (0.0-2.0); EOSINOPHILS % (AUTO) 7.1 % (0.0-6.0); HEMATOCRIT 30 % (33-45); HEMOGLOBIN 9.8 g/dL (11.5-14.8); LYMPHOCYTES # (AUTO) 0.5 /CMM (0.8-4.8); LYMPHOCYTES % (AUTO) 10.9 % (20.0-44.0); MEAN CORPUSCULAR HGB CONC 32 g/dl (31.0-36.0); MEAN CORPUSCULAR VOLUME 93 fL (82-100); MONOCYTES # (AUTO) 0.6 /CMM (0.1-1.30); MONOCYTES % (AUTO) 11.8 % (2.0-12.0); NEUTROPHILS # (AUTO) 3.4 /CMM (1.8-8.9); NEUTROPHILS % (AUTO) 69.6 % (43.0-81.0); PLATELET COUNT (AUTO) 205 /CMM (150-450); RED BLOOD CELL COUNT(AUTO) 3.26 MIL/uL (4.0-5.2); WHITE BLOOD COUNT (AUTO) 4.9 K/uL (4.3-11.0)
[2019-04-27] MEDS ORDERED: ALBUTEROL FS 2.5 MG/3 ML VIAL.NEB ONE (15:38)
[2019-04-27] MEDS ORDERED: IPRATROPIUM NEB FS 0.5 MG/2.5 ML AMPUL.NEB ONE (15:38)
[2019-04-27] MEDS ORDERED: LEVO50TA8 PO (15:53)
[2019-04-27] MEDS ORDERED: POTA10TA10 PO (15:53)
[2019-04-27] MEDS ORDERED: SACC250C PO (15:53)
[2019-04-27] MEDS ORDERED: METO25TA20 PO (15:53)
[2019-04-27] MEDS ORDERED: RIFA200T2 PO (15:53)
[2019-04-27] MEDS ORDERED: DILT-4 PO (15:53)
[2019-04-27] MEDS ORDERED: IPRA0.2S9 IH (15:53)
[2019-04-27 15:54] LABS: CALCIUM, SERUM 9.4 mg/dL (8.5-10.1); CARBON DIOXIDE 35 mmol/L (21-32); CHLORIDE 104 mmol/L (98-107); CREATININE 0.9 mg/dL (0.6-1.3); GLUCOSE 121 mg/dL (74-106); SODIUM SERUM 144 mmol/L (136-145); UREA NITROGEN, BLOOD 29 mg/dL (7-18)
[2019-04-27] MEDS ORDERED: methylPREDNISolone SOD SUCC 125 MG/2ML VIAL ONE (15:58)
[2019-04-27 16:06] LABS: ALANINE AMINOTRANSFERASE 31 U/L (12-78); ALBUMIN 2.3 g/dL (3.4-5.0); ALKALINE PHOSPHATASE 108 U/L (46-116); ASPARTATE AMINOTRANSFERASE 35 U/L (15-37); B-TYPE NATRIURETIC PEPTIDE 701 PG/ML (0-125); BILIRUBIN,DIRECT 0.2 mg/dL (0.0-0.2); BILIRUBIN,TOTAL 0.6 mg/dL (0.2-1.0); TOTAL PROTEIN, SERUM 5.7 g/dL (6.4-8.2)
[2019-04-27] MEDS ORDERED: VANCOMYCIN 1 GM in IV D5W 250 ML IV ONE (16:30)
[2019-04-27] MEDS ORDERED: PIPERACILLIN /TAZOBACTAM 3.375 G in IV D5W 50 ML IV ONE (16:30)
--- NOTE | 2019-04-27 16:30 | NUR ---
Patient awake alert wheezing Rt treatment done by Rt noted patient has multiple bruises to bilateral upper Ext. ,edema, patient is hard stick ,she has skin tear ,and edema lower ext. place on monitor ,gown ,ekg .
--- NOTE | 2019-04-27 16:57 | NUR ---
TURNED IN MOVE SHEET TO ADMITTING
--- NOTE | 2019-04-27 17:38 | NUR ---
geek squad autotech haylie @ bedside BC x 2 done and basic labs obtained
[2019-04-27 17:54] LABS: APPEARANCE,URINE Clear (CLEAR); BILIRUBIN,URINE SMALL (NEGATIVE); BLOOD, URINE Trace-intact Ery/uL (NEGATIVE); COLOR,URINE Dark (YELLOW); KETONES,URINE Trace (NEGATIVE); LEUKOCYTE ESTERASE ,URINE Negative (NEGATIVE); NITRITE, URINE Negative (NEGATIVE); PROTEIN,URINE 30 mg/dl (NEGATIVE); UGLUCOSE Negative (NEGATIVE)
--- NOTE | 2019-04-27 17:58 | NUR ---
Patient agrees for in and out cath assited by Vahe SIMMS patient prep obseved sterlle technique urine obtained and sen to lab
--- NOTE | 2019-04-27 18:00 | NUR ---
Called Picc line RN made aware per CN
[2019-04-27 18:22] LABS: BACTERIA,URINE Rare /HPF (None Seen); SQUAMOUS EPITHELIAL CELL,UR Few /HPF (None Seen); WBC,URINE NONE SEEN /HPF (0-3)
--- NOTE | 2019-04-27 18:22 | NUR ---
aware awaiting for picc RN
[2019-04-27] MEDS ORDERED: PIPERACILLIN /TAZOBACTAM 3.375 G VIAL IV ONE (18:23)
[2019-04-27] MEDS ORDERED: IPRATROPIUM NEB FS 0.5 MG/2.5 ML AMPUL.NEB NEB PRN (18:30)
[2019-04-27] MEDS ORDERED: Z GUARD REMEDY 2 OZ OINT TP PRN (18:30)
[2019-04-27] MEDS ORDERED: ONDANSETRON HCL/PF 4 MG/2 ML VIAL IVP PRN (18:30)
[2019-04-27] MEDS ORDERED: MAGNESIUM HYDROXIDE 30 ML UDC PO PRN (18:30)
[2019-04-27] MEDS ORDERED: MAG HYDROX/AL HYDROX/SIMETH 30 ML UDC PO PRN (18:30)
[2019-04-27] MEDS ORDERED: ALBUTEROL FS 2.5 MG/3 ML VIAL.NEB NEB PRN (18:30)
--- NOTE | 2019-04-27 18:45 | NUR ---
Midline EDVIN Arm done by becki Donahue and diego to use
--- NOTE | 2019-04-27 18:47 | NUR ---
[facility] BED 117-2
[2019-04-27] MEDS ORDERED: VANCOMYCIN 1 GM VIAL ONE (18:57)
--- NOTE | 2019-04-27 19:02 | NUR ---
Spoke to Aleyda Fonseca stated aftre the shift chance
--- NOTE | 2019-04-27 19:10 | NUR ---
RECEIVED PT FROM GUSTAVO CRUZ.
--- NOTE | 2019-04-27 19:22 | NUR ---
Report given to Lavelle to 117-2
[2019-04-27 19:35] VITALS: BP 131/68
--- NOTE | 2019-04-27 19:49 | NUR ---
PT TRANSPORTED TO UNIT ON [facility] WITH EMT AND RN AT BEDSIDE WITH ACLS PROTOCOL. NAD DURING TRANSPORT.
[2019-04-27 20:00] VITALS: BP 100/36
--- NOTE | 2019-04-27 20:20 | NUR ---
DROP TESTER OPENING NOTES, RECEVED PATIENT FROM ER, A/O X3. NO ACUTE SOB AT HIS TIME VS WITHIN NORMAL LIMIT. MID LINE ON LEFT UPPER ARM, VANCO RUNNING AT 250ML/HR. PATIENT HAS MULTIPLE BRUISES, AND SKIN TEARS, PICTURES TAKEN. EDEMA PRESENTED MOSTLY ON LOWER EXTREMITIES. PATIENT ON MONITOR HR A.FIB. PATIENT DENIES CHEST PAIN. BED IN LOW/LOCKED POSITION CALL LIGHT WITHIN REACH. WILL CONTINUE TO MONITOR.
[2019-04-27] MEDS ORDERED: PHYTONADIONE INJ 1 MG in IV D5W 50 ML IV ONE (20:30)
[2019-04-27] MEDS: risperiDONE 0.25 MG TABLET PO SCH (21:22)
[2019-04-27] MEDS: DIVALPROEX SODIUM 125 MG CAP.SPRINK PO SCH (21:22)
[2019-04-27] MEDS: methylPREDNISolone SOD SUCC 40 MG/ML VIAL IV SCH (21:23)
[2019-04-27] MEDS ORDERED: PHYTONADIONE INJ 10 MG/1 ML AMPUL ONE (21:27)
--- NOTE | 2019-04-27 21:30 | NUR ---
ELECTRONIC EQUIPMENT INSTALLER NOTES, PATIENTS INR=12.84 EM=065.6 AND APTT=73.1 DR CERVANTES NOTIFIED. PER HIS ORDER HOLD HOME MED SUPERVISOR HARVESTING AND GIVE 1 GRAM OF VIT K
[2019-04-28] VITALS (8 sets, daily range): BP systolic 95–125; BP diastolic 36–95
[2019-04-28] MEDS ORDERED: PIPERACILLIN /TAZOBACTAM 3.375 G VIAL IV ONE ×2 (00:29→04:59)
--- NOTE | 2019-04-28 00:30 | NUR ---
PLANT GENERAL MANAGER NOTE, ZOSYN WAS RECEIVED FROM ICU PER DRS ORDER AND BEEN ADMINISTERED 100ML/HR
[2019-04-28] MEDS: ZOSYN IVPB 3.375 G in IV D5W 50ml IV SCH ×2 (00:31→05:04)
[2019-04-28] MEDS: METOPROLOL TARTRATE 25 MG TABLET PO SCH ×5 (00:50→23:57)
[2019-04-28] MEDS: ACETAMINOPHEN 325 MG TABLET PO PRN ×2 (01:27→07:25)
[2019-04-28 03:10] LABS: BASOPHILS # (AUTO) 0.1 /CMM (0.0-0.2); BASOPHILS % (AUTO) 1.9 % (0.0-2.0); EOSINOPHILS % (AUTO) 0.2 % (0.0-6.0); HEMATOCRIT 30 % (33-45); HEMOGLOBIN 9.7 g/dL (11.5-14.8); LYMPHOCYTES # (AUTO) 0.2 /CMM (0.8-4.8); LYMPHOCYTES % (AUTO) 5.6 % (20.0-44.0); MEAN CORPUSCULAR HGB CONC 33 g/dl (31.0-36.0); MEAN CORPUSCULAR VOLUME 92 fL (82-100); MONOCYTES # (AUTO) 0.1 /CMM (0.1-1.30); MONOCYTES % (AUTO) 1.3 % (2.0-12.0); PLATELET COUNT (AUTO) 199 /CMM (150-450); RED BLOOD CELL COUNT(AUTO) 3.23 MIL/uL (4.0-5.2); WHITE BLOOD COUNT (AUTO) 4.4 K/uL (4.3-11.0)
[2019-04-28 03:21] LABS: ALBUMIN 2.2 g/dL (3.4-5.0); BILIRUBIN,TOTAL 0.7 mg/dL (0.2-1.0); CALCIUM, SERUM 8.7 mg/dL (8.5-10.1); CREATININE 0.9 mg/dL (0.6-1.3); MAGNESIUM 2.1 mg/dL (1.8-2.4); PHOSPHORUS 4.2 mg/dL (2.5-4.9); POTASSIUM 4.7 mmol/L (3.5-5.1); TOTAL PROTEIN, SERUM 5.5 g/dL (6.4-8.2)
[2019-04-28 03:30] LABS: THYROID STIMULATING HORMONE 10.827 uIU/mL (0.358-3.74)
[2019-04-28] MEDS ORDERED: VANCOMYCIN 1 GM VIAL ONE (04:59)
--- NOTE | 2019-04-28 05:00 | NUR ---
DIMETHYLANILINE SULFATOR OPERATOR NOTES, ZOSYN RECEIVED FROM ICU AND 100ML/HR IS BEING ADMINISTERED.
[2019-04-28] MEDS: methylPREDNISolone SOD SUCC 40 MG/ML VIAL IV SCH (05:06)
[2019-04-28] MEDS ORDERED: VANCOMYCIN 1 GM in IV NS 0.9% 250 ML IV ONE (06:00)
[2019-04-28] MEDS: LEVOTHYROXINE SODIUM 50 MCG TABLET PO SCH (07:25)
[2019-04-28] MEDS ORDERED: FEE PK DOSING 1 MIN EA MC ONE (07:28)
--- NOTE | 2019-04-28 07:40 | NUR ---
RN OPENING NOTES RECEIVED PATIENT AWAKE AND RESTING COMFORTABLY IN BED. SHE IS AOX3, VERBAL, AND ON BED REST. BREATHING IS LABORED WITH RHONCHI HEARD UPON AUSCULTATION. PT COMPLAINS OF GENERALIZED PAIN. SHE IS ON 2L OF OXYGEN VIA NC, TOLERATING WELL. TELE MONITOR SHOWING CONTROLLED AFIB. SKIN IS NOT INTACT, BRUISES AND SKIN TEARS ON UPPER AND LOWER EXTREMITIES. EDEMA IS PRESENT ON BLE. PT ON CARDIAC DIET, TOLERATING WELL. SHE HAS A EDVIN MIDLINE, PATENT AND INTACT. SAFETY MEASURES HAVE BEEN IMPLEMENTED, CALL LIGHT IS WITHIN REACH, SIDE RAILS UP X2, BED IS IN LOWEST AND LOCKED POSITION, WILL CONTINUE TO MONITOR FOR ANY CHANGES.
--- NOTE | 2019-04-28 07:57 | NUR ---
SCRUMMASTER CLOSING NOTES, PATIENT FROM AWAKE, A/O X3. NO ACUTE SOB AT HIS TIME. VS WITHIN NORMAL LIMIT. PATIENT ON MONITOR HR A.FIB. PATIENT DENIES CHEST PAIN. MID LINE ON LEFT UPPER ARM, P, EDEMA PRESENTED MOSTLY ON LOWER EXTREMITIES. PATIENT HAVING BREAKFAST AT THIS TIME. PATIENT WAS NOT CORPORATIVE DURING RELOCATION MANAGER, FOLLOWS COMMANDS BUT FORGETS SOON THE NURSE LEAVES THE ROOM. BED IN LOW/LOCKED POSITION CALL LIGHT WITHIN REACH. AM RN RECEIVED THE REPORT FOR HUMBERTO..
[2019-04-28] MEDS: DOCUSATE SODIUM 100 MG CAPSULE PO SCH (08:45)
[2019-04-28] MEDS: risperiDONE 0.25 MG TABLET PO SCH ×2 (08:45→21:45)
[2019-04-28] MEDS: FUROSEMIDE 40 MG TABLET PO SCH (08:45)
[2019-04-28] MEDS: POTASSIUM CHLORIDE 10 MEQ TABLET.SA PO SCH (08:45)
[2019-04-28] MEDS: LACTOBACILLUS RHAMNOSUS GG 1 EACH CAP.SPRINK PO SCH ×2 (08:45→16:51)
[2019-04-28] MEDS: DIVALPROEX SODIUM 125 MG CAP.SPRINK PO SCH ×2 (08:45→21:45)
[2019-04-28] MEDS ORDERED: DILTIAZEM HCL CD 240 MG PO SCH (09:00)
[2019-04-28] MEDS ORDERED: ENOXAPARIN SODIUM 40 MG/0.4 ML DISP.SYRIN SQ SCH ×2 (09:00)
[2019-04-28 10:54] LABS: ABG BASE EXCESS 5.5 mmol/L; ABG OXYGEN SATURATION 93.3 % (92.0-98.5); ABG PCO2 53.1 mmHg (35.0-45.0); ABG PO2 75.8 mmHg (75.0-100.0); AaDO2 61.2 mmHg; COHb 0.7 % (0.5-1.5); MetHb 0.5 % (0.0-1.5); O2Hb 92.2 % (94.0-97.0); SITE, ABG Left Radial; VENT MODE, BG 2L NC
[2019-04-28] MEDS ORDERED: ALBUTEROL FS 2.5 MG/3 ML VIAL.NEB NEB SCH (11:30)
[2019-04-28] MEDS ORDERED: PIPERACILLIN /TAZOBACTAM 3.375 G in IV D5W 50 ML IV SCH (12:00)
--- NOTE | 2019-04-28 12:08 | NUR ---
RN NOTES PATIENT IS VERY RESTLESS AND ANXIOUS, SHE IS NOT BEING COOPERATIVE. HER MIDLINE WAS PULLED OUT S SHE WAS TRYING TO SIT UP. ATTEMPTED DEEP BREATHING AND RELAXING EXERCISES TO HELP HER RELAX BUT TO NO EFFECT. PT ROOM WAS CHANGED TO 105 TO BE CLOSER TO NURSES STATION. WILL CONTINUE TO MONITOR FOR ANY CHANGES.
--- NOTE | 2019-04-28 12:50 | NUR ---
RN NOTES 1300 METOPROLOL HELD. PT HR IS 57, WILL CONTINUE TO MONITOR
--- NOTE | 2019-04-28 12:56 | NUR ---
RN NOTES ADMINISTRATION OF ZOSYN IV @ 1300 WILL BE DELAYED. NO IV ACCESS, WAITING FOR NEW MIDLINE INSERTION, PT IS A HARDSTICK
--- NOTE | 2019-04-28 15:09 | NUR ---
PATIENT VERY AGITATED ,SCREAMING ,PULLED IV OUT EARLIER,PER KONSTANTIN MARTINS MIDLINE NURSE RECOMMEND TO CHANGE ANTIBIOTICS TO PO.ANDREA MOSES NOTIFIED WITH NEW ORDERS LEFT AND CARRIED OUT.AWAITS SITTER.
[2019-04-28] MEDS ORDERED: ONDANSETRON 4 MG TAB.RAPDIS PO PRN (15:30)
[2019-04-28] MEDS: ALBUTEROL FS 2.5 MG/3 ML VIAL.NEB NEB SCH ×4 (15:58→23:20)
[2019-04-28] MEDS: IPRATROPIUM NEB FS 0.5 MG/2.5 ML AMPUL.NEB NEB SCH ×4 (15:58→23:20)
--- NOTE | 2019-04-28 16:05 | NUR ---
RT HHN tx at 1130 was missed due to being unaware of HHN frequency order change. Addendum: 04/28/19 at 1606 by LEX PERALES RT Amended: Links added.
--- NOTE | 2019-04-28 16:37 | NUR ---
ICU NURSE TRIED 3X UNSUCCESSFUL,NURSING SUP NOTIFIED NEED MIDLINE R/T TELEMETRY STATUS,AWAITS MIDLINE.
[2019-04-28] MEDS: DOXYCYCLINE HYCLATE (100 MG) 100 MG TABLET PO SCH (16:50)
[2019-04-28] MEDS: CEFUROXIME AXETIL 250 MG TABLET PO SCH (16:51)
[2019-04-28] MEDS: predniSONE 20 MG TABLET PO SCH (16:51)
[2019-04-28] MEDS: WARFARIN SODIUM 1 MG TABLET PO SCH (16:53)
[2019-04-28] MEDS ORDERED: VANCOMYCIN 1 GM in IV D5W 250 ML IV SCH (18:00)
--- NOTE | 2019-04-28 18:24 | NUR ---
obtained order for central line,no midline nurse available.consent signed by patient per patient would like to finish dinner first.
[2019-04-28] MEDS: DILTIAZEM HCL CD 240 MG PO SCH (18:25)
--- NOTE | 2019-04-28 19:21 | NUR ---
per nursing sup primary md need to call ER md to placed central line.spoke with DR. CERVATNES,updated with patient condition HR on and off uncontrolled afib ,started on cardizem cd already. per md no need for central line may put midline in am.nursing sup made aware.FACILITATED TO STAFF.sitter at bedside.patient calm and quiet asleep.
--- NOTE | 2019-04-28 19:30 | NUR ---
METAL BURNISHER AFIB ON MONITOR. PT NOTING DESATURATING; O2 INCREASED TO 4L VIA NC. PT W/SITTER AT BEDSIDE FOR CONFUSION AND PULLING OUT IV LINES. NO IV ACCESS AT THIS TIME; PER MD ACKERMAN FOR MIDLINE INSERTION IN AM. OKAY FOR HR UP TO 120. PT W/MULTIPLE BRUISES AND LACERATIONS THROUGHOUT. WEEPING BUE. NO PAIN MEDICATION PER SON; WELL MINIMIZE SEDATION. CONTINUE TO MONITOR.
--- NOTE | 2019-04-28 19:59 | NUR ---
RN CLOSING NOTES PATIENT IS RESTING COMFORTABLY IN BED AT THIS TIME. SHE IS NOTICEABLY LESS ANXIOUS AND RESTLESS. PT IS TO HAVE A MIDLINE PLACED TOMORROW AM. NO ACUTE CHANGES OCCURRED THROUGHOUT THE SHIFT, VITAL SIGNS ARE STABLE, PT NEEDS HAVE BEEN MET. SAFETY MEASURES HAVE BEEN IMPLEMENTED, CALL LIGHT IS WITHIN REACH, SIDE RAILS UP X2, PT HAS BEEN ENDORSED TO NIGHTSHIFT RN FOR CONTINUITY OF CARE.
--- NOTE | 2019-04-28 21:06 | NUR ---
RN ENDORSEMENT NOTES RECEIVED ENDORSEMENT FROM BIJAN RN ELYSIA. Pt IS WITH SITTER. WILL CONTINUE WITH Pt's CARE FOR THE REMAINDER OF THE SHIFT.
--- NOTE | 2019-04-28 23:30 | NUR ---
RN NOTES Pt REFUSED FOR BREATHING TREATMENT AT THIS TIME. WISHES TO SLEEP AND BE LEFT ALONE.
--- NOTE | 2019-04-28 23:55 | NUR ---
RN NOTES Pt REFUSED FOR 0000 VITALS TO BE TAKEN. Addendum: 04/28/19 at 1946 by KATELYN RODRIGUEZ RN ATTEMPTED MULTIPLE TIMES TO EXPLAIN TO Pt THE REASON FOR NEEDING VITAL SIGNS, Pt GOT VERBALLY ABUSIVE AND STARTED CURSING.
--- NOTE | 2019-04-28 23:57 | NUR ---
RN NOTES Pt REFUSED FOR VITAL SIGNS TO BE TAKEN, EVEN WITH MULTIPLE ATTEMPTS OF EXPLAINING WHY. EXPLAINED TO Pt THAT WE NEEDED A NEW BLOOD PRESSURE BECAUSE SHE IS GETTING A BP MED LOPRESSOR. Pt GOT VERBALLY ABUSIVE AND STARTED CURSING. Pt SAID SHE DID NOT CARE, AND TOLD US TO LEAVE HER ALONE, AND TO NOT DISTURB HER AGAIN. SITTER AT BEDSIDE FOR SAFETY. WILL CONTINUE TO MONITOR Pt's CONDITION AND SAFETY.
--- NOTE | 2019-04-29 00:01 | NUR ---
Pt REFUSED VITAL SIGNS AT THIS TIME Addendum: 04/29/19 at 0002 by KATELYN RODRIGUEZ RN Amended: Links added.
[2019-04-29 00:02] VITALS: BP 123/88
[2019-04-29] MEDS: ACETAMINOPHEN 325 MG TABLET PO PRN ×3 (02:30→19:01)
[2019-04-29] MEDS: IPRATROPIUM NEB FS 0.5 MG/2.5 ML AMPUL.NEB NEB SCH ×6 (03:57→23:44)
[2019-04-29] MEDS: ALBUTEROL FS 2.5 MG/3 ML VIAL.NEB NEB SCH ×6 (03:57→23:44)
[2019-04-29 04:00] VITALS: BP 116/63
[2019-04-29] MEDS: METOPROLOL TARTRATE 25 MG TABLET PO SCH ×3 (05:48→17:27)
--- NOTE | 2019-04-29 06:25 | NUR ---
RN CLOSING NOTES NO SIGNIFICANT CHANGES IN Pt's CONDITION. Pt REMAINED STABLE THROUGHOUT THE NIGHT. NO S/S OF ACUTE DISTRESS OR SEVERE SOB NOTED DURING THE SHIFT. ALL NEEDS MET AND ATTENDED TO. SAFETY MEASURES IN PLACE. BED LOW, LOCKED, HOB ELEVATED, SIDE RAILS UP, CALL LIGHT AND BEDSIDE TABLE WITHIN REACH. TELE READING AFIB 70s-118. WILL ENDORSE TO DAYSHIFT RN FOR Pt's HUMBERTO.
[2019-04-29] MEDS: LEVOTHYROXINE SODIUM 50 MCG TABLET PO SCH (06:44)
--- NOTE | 2019-04-29 07:45 | NUR ---
WOUND CARE CONSULT: PT FOLLOWED BY PLASTIC SURGERY AND PODIATRY TEAMS FOR WOUND CARE. DEFER TO SURGICAL TEAMS FOR WOUND TREATMENT PLAN. SKIN PROTECTION RECOMMENDATIONS DISCUSSED WITH NURSING STAFF. PT IS ON [place] ISOFLEX LOW AIRLOSS BED. CURRENT CASSIDY SCORE IS 11. WILL SEE PRN.
[2019-04-29 08:00] VITALS: BP 124/68
[2019-04-29] MEDS ORDERED: DILTIAZEM HCL CD 240 MG PO SCH (09:00)
[2019-04-29] MEDS: LACTOBACILLUS RHAMNOSUS GG 1 EACH CAP.SPRINK PO SCH ×2 (09:09→17:05)
[2019-04-29] MEDS: DIVALPROEX SODIUM 125 MG CAP.SPRINK PO SCH ×2 (09:10→21:55)
[2019-04-29] MEDS: DOCUSATE SODIUM 100 MG CAPSULE PO SCH (09:10)
[2019-04-29] MEDS: risperiDONE 0.25 MG TABLET PO SCH ×2 (09:10→21:55)
[2019-04-29] MEDS: DOXYCYCLINE HYCLATE (100 MG) 100 MG TABLET PO SCH ×2 (09:10→17:06)
[2019-04-29] MEDS: predniSONE 20 MG TABLET PO SCH ×2 (09:10→17:06)
[2019-04-29] MEDS: POTASSIUM CHLORIDE 10 MEQ TABLET.SA PO SCH (09:11)
[2019-04-29] MEDS: FUROSEMIDE 40 MG TABLET PO SCH (09:11)
[2019-04-29] MEDS: CEFUROXIME AXETIL 250 MG TABLET PO SCH ×2 (09:12→17:05)
--- NOTE | 2019-04-29 10:37 | NUR ---
position description manager Notes Electronics Worker Radha notified about mid line needs for the patient. Radha stated "I am working on it"
[2019-04-29 12:00] VITALS: BP 130/74
[2019-04-29] MEDS: SILVER SULFADIAZINE CREAM 25 GM TUBE TP SCH (12:00)
--- NOTE | 2019-04-29 12:27 | NUR ---
senior test engineer Matt Gay at bedside. Knows about the pain on the right foot and has seen the wound on the buttock.
--- NOTE | 2019-04-29 12:47 | NUR ---
SECURITY BUSINESS ANALYST NOTES 18 gauge Mid Line inserted into right arm by Matt Gay DNP .
--- NOTE | 2019-04-29 13:19 | NUR ---
GOLD BURNISHER NOTES HOME CARE CHAPLAIN AT BED SIDE. MALIHA BLOOD FROM THE MID LINE. MID LINE INTACT. FLUSHED WELL.
[2019-04-29] MEDS ORDERED: SILVER SULFADIAZINE CREAM 25 GM TUBE TP PRN (13:30)
[2019-04-29 13:48] LABS: BASOPHILS # (AUTO) 0.1 /CMM (0.0-0.2); BASOPHILS % (AUTO) 0.9 % (0.0-2.0); EOSINOPHILS % (AUTO) 0.2 % (0.0-6.0); HEMATOCRIT 30 % (33-45); HEMOGLOBIN 9.5 g/dL (11.5-14.8); LYMPHOCYTES # (AUTO) 0.4 /CMM (0.8-4.8); LYMPHOCYTES % (AUTO) 4.9 % (20.0-44.0); MEAN CORPUSCULAR HGB CONC 32 g/dl (31.0-36.0); MEAN CORPUSCULAR VOLUME 94 fL (82-100); MONOCYTES # (AUTO) 0.6 /CMM (0.1-1.30); MONOCYTES % (AUTO) 6.5 % (2.0-12.0); NEUTROPHILS # (AUTO) 7.8 /CMM (1.8-8.9); NEUTROPHILS % (AUTO) 87.5 % (43.0-81.0); PLATELET COUNT (AUTO) 247 /CMM (150-450); RED BLOOD CELL COUNT(AUTO) 3.18 MIL/uL (4.0-5.2); WHITE BLOOD COUNT (AUTO) 8.9 K/uL (4.3-11.0)
[2019-04-29 14:35] LABS: CALCIUM, SERUM 8.2 mg/dL (8.5-10.1); MAGNESIUM 2.2 mg/dL (1.8-2.4); PHOSPHORUS 3.5 mg/dL (2.5-4.9); POTASSIUM 5.5 mmol/L (3.5-5.1)
[2019-04-29 16:00] VITALS: BP 126/70
[2019-04-29] MEDS: WARFARIN SODIUM 1 MG TABLET PO SCH (17:11)
[2019-04-29] MEDS: DILTIAZEM HCL CD 240 MG PO SCH (17:26)
--- NOTE | 2019-04-29 18:47 | NUR ---
RN NOTES PT IS ASLEEP IN BED. NO ACUTE CHANGE IN PATIENT CONDITION THROUGHOUT MY SHIFT. PT IS STABLE. FED BY QA LEAD, KEPT CLEAN AND DRY. SAFETY MAINTAINED. BED LOW, ALARMED, LOCKED. CALL LIGHT WITHIN REACH. ALL NEEDS MET AND ATTENDED TO.
[2019-04-29 20:00] VITALS: BP 125/71
[2019-04-30] MEDS: METOPROLOL TARTRATE 25 MG TABLET PO SCH ×4 (00:15→17:52)
[2019-04-30] MEDS: IPRATROPIUM NEB FS 0.5 MG/2.5 ML AMPUL.NEB NEB SCH ×5 (03:14→19:46)
[2019-04-30] MEDS: ALBUTEROL FS 2.5 MG/3 ML VIAL.NEB NEB SCH ×5 (03:14→19:47)
[2019-04-30 04:00] VITALS: BP 131/74
[2019-04-30] MEDS: LEVOTHYROXINE SODIUM 50 MCG TABLET PO SCH (06:47)
--- NOTE | 2019-04-30 07:20 | NUR ---
RN NOTE: Received patient in bed, awake, alert and verbally responsive. Breathing evenly and unlabored, on O2 4L/min via NC saturating 94-95%. Denied any pain at this time. (R) UA midline noted patent and intact. Saline flushed for patency. HOB elevated. 1:1 sitter was ordered due to patient's behavior of pulling her medical tubings/lines. Afebrile. Skin warm to touch. Patient was noted with generalized edema with scattered multiple bruising on her skin. Call light within reach. Needs anticipated. Per pm shift report, patient has episodes of yelling and screaming for no reason.
[2019-04-30 08:00] VITALS: BP 110/62
[2019-04-30 08:49] LABS: BASOPHILS % (AUTO) 0.3 % (0.0-2.0); HEMATOCRIT 29 % (33-45); HEMOGLOBIN 9.4 g/dL (11.5-14.8); LYMPHOCYTES # (AUTO) 0.9 /CMM (0.8-4.8); LYMPHOCYTES % (AUTO) 7.9 % (20.0-44.0); MEAN CORPUSCULAR HGB CONC 32 g/dl (31.0-36.0); MEAN CORPUSCULAR VOLUME 92 fL (82-100); MONOCYTES # (AUTO) 1.5 /CMM (0.1-1.30); MONOCYTES % (AUTO) 13.3 % (2.0-12.0); NEUTROPHILS # (AUTO) 8.7 /CMM (1.8-8.9); NEUTROPHILS % (AUTO) 78.5 % (43.0-81.0); PLATELET COUNT (AUTO) 247 /CMM (150-450); RED BLOOD CELL COUNT(AUTO) 3.15 MIL/uL (4.0-5.2); WHITE BLOOD COUNT (AUTO) 11.1 K/uL (4.3-11.0)
[2019-04-30 09:10] LABS: CALCIUM, SERUM 8.2 mg/dL (8.5-10.1); CREATININE 0.8 mg/dL (0.6-1.3); POTASSIUM 5.4 mmol/L (3.5-5.1)
[2019-04-30] MEDS: DIVALPROEX SODIUM 125 MG CAP.SPRINK PO SCH ×2 (09:17→20:35)
[2019-04-30] MEDS: LACTOBACILLUS RHAMNOSUS GG 1 EACH CAP.SPRINK PO SCH ×2 (09:17→16:33)
[2019-04-30] MEDS: DOCUSATE SODIUM 100 MG CAPSULE PO SCH (09:17)
[2019-04-30] MEDS: POTASSIUM CHLORIDE 10 MEQ TABLET.SA PO SCH (09:17)
[2019-04-30] MEDS: DOXYCYCLINE HYCLATE (100 MG) 100 MG TABLET PO SCH ×2 (09:17→16:33)
[2019-04-30] MEDS: FUROSEMIDE 40 MG TABLET PO SCH (09:17)
[2019-04-30] MEDS: CEFUROXIME AXETIL 250 MG TABLET PO SCH ×2 (09:18→16:33)
[2019-04-30] MEDS: predniSONE 20 MG TABLET PO SCH ×2 (09:18→14:34)
[2019-04-30] MEDS: risperiDONE 0.25 MG TABLET PO SCH ×2 (09:29→20:35)
[2019-04-30] MEDS: SILVER SULFADIAZINE CREAM 25 GM TUBE TP SCH (09:48)
[2019-04-30] MEDS: ACETAMINOPHEN ES 500 MG TABLET PO PRN (14:45)
[2019-04-30 16:00] VITALS: BP 99/64
[2019-04-30] MEDS: WARFARIN SODIUM 1 MG TABLET PO SCH (16:34)
[2019-04-30] MEDS: DILTIAZEM HCL CD 240 MG PO SCH (17:52)
--- NOTE | 2019-04-30 18:17 | NUR ---
RN NOTE: Called and spoke with Dr. Dav Glover and made him aware about the phone call from Noble (son) and he was requesting about to check the patient for Hepatitis C due to her Liver Cirrhosis medical history. was assured that the AST/ALT blood drawn on the patient last April 28 was within normal. Per Dr. Glover, he will speak with the patient's son Noble by tomorrow and the cellphone number [phone].
--- NOTE | 2019-04-30 19:10 | NUR ---
RN NOTE: Bedside report was given to PM shift nurse for continuity of care. Patient was resting comfortably at the bed. Call light within reach.
[2019-04-30 20:00] VITALS: BP 122/74
[2019-05-01] MEDS: ALBUTEROL FS 2.5 MG/3 ML VIAL.NEB NEB SCH ×7 (00:12→23:25)
[2019-05-01] MEDS: IPRATROPIUM NEB FS 0.5 MG/2.5 ML AMPUL.NEB NEB SCH ×7 (00:12→23:25)
[2019-05-01] MEDS: METOPROLOL TARTRATE 25 MG TABLET PO SCH ×4 (00:32→18:03)
[2019-05-01] MEDS ORDERED: ONDANSETRON HCL/PF 4 MG/2 ML VIAL ONE (02:59)
[2019-05-01] MEDS ORDERED: MORPHINE SULFATE INJ 4 MG/ML DISP.SYRIN ONE (03:00)
[2019-05-01 04:00] VITALS: BP 124/96
[2019-05-01] MEDS: ACETAMINOPHEN ES 500 MG TABLET PO PRN ×3 (05:28→18:45)
--- NOTE | 2019-05-01 07:10 | NUR ---
MS RN OPENING NOTE: Received patient in bed, awake, alert and verbally responsive. Breathing evenly and unlabored, on O2 4L/min via NC saturating 94-95%. Denied any pain at this time. (R) UA midline noted patent and intact. Saline flushed for patency. HOB elevated. Sitter at bedside. Afebrile. Skin warm to touch. Patient was noted with generalized edema with scattered multiple bruising on her skin. Call light within reach. Needs anticipated. Per pm shift report, patient has episodes of yelling and screaming for no reason. Will continue to monitor.
[2019-05-01] MEDS: LEVOTHYROXINE SODIUM 50 MCG TABLET PO SCH (07:53)
[2019-05-01 08:35] LABS: BASOPHILS % (AUTO) 0.3 % (0.0-2.0); HEMATOCRIT 30 % (33-45); HEMOGLOBIN 9.9 g/dL (11.5-14.8); LYMPHOCYTES # (AUTO) 0.9 /CMM (0.8-4.8); LYMPHOCYTES % (AUTO) 8.7 % (20.0-44.0); MEAN CORPUSCULAR HGB CONC 33 g/dl (31.0-36.0); MEAN CORPUSCULAR VOLUME 92 fL (82-100); MONOCYTES # (AUTO) 1.5 /CMM (0.1-1.30); MONOCYTES % (AUTO) 14.5 % (2.0-12.0); NEUTROPHILS # (AUTO) 7.7 /CMM (1.8-8.9); NEUTROPHILS % (AUTO) 76.5 % (43.0-81.0); PLATELET COUNT (AUTO) 204 /CMM (150-450); RED BLOOD CELL COUNT(AUTO) 3.28 MIL/uL (4.0-5.2); WHITE BLOOD COUNT (AUTO) 10.1 K/uL (4.3-11.0)
[2019-05-01 08:45] LABS: CALCIUM, SERUM 7.9 mg/dL (8.5-10.1); CREATININE 0.9 mg/dL (0.6-1.3); MAGNESIUM 2.2 mg/dL (1.8-2.4); PHOSPHORUS 3.2 mg/dL (2.5-4.9); POTASSIUM 5.7 mmol/L (3.5-5.1)
[2019-05-01] MEDS: FUROSEMIDE 40 MG TABLET PO SCH (09:19)
[2019-05-01] MEDS: risperiDONE 0.25 MG TABLET PO SCH ×2 (09:19→21:58)
[2019-05-01] MEDS: DOXYCYCLINE HYCLATE (100 MG) 100 MG TABLET PO SCH ×2 (09:19→18:03)
[2019-05-01] MEDS: DIVALPROEX SODIUM 125 MG CAP.SPRINK PO SCH ×2 (09:20→21:58)
[2019-05-01] MEDS: LACTOBACILLUS RHAMNOSUS GG 1 EACH CAP.SPRINK PO SCH ×2 (09:20→18:02)
[2019-05-01] MEDS: POTASSIUM CHLORIDE 10 MEQ TABLET.SA PO SCH (09:20)
[2019-05-01] MEDS: DOCUSATE SODIUM 100 MG CAPSULE PO SCH (09:20)
[2019-05-01] MEDS: predniSONE 20 MG TABLET PO SCH (09:20)
[2019-05-01] MEDS: SILVER SULFADIAZINE CREAM 25 GM TUBE TP SCH (09:52)
[2019-05-01 12:00] VITALS: BP 124/96
[2019-05-01] MEDS: CEFUROXIME AXETIL 250 MG TABLET PO SCH ×2 (14:27→18:06)
[2019-05-01] MEDS ORDERED: PRED20TA PO ×2 (17:19)
[2019-05-01] MEDS ORDERED: Cefuroxime Axetil PO (17:19)
[2019-05-01] MEDS ORDERED: DOXY100T2 PO (17:19)
[2019-05-01] MEDS ORDERED: PRED5TAB48 PO ×2 (17:19)
[2019-05-01] MEDS: DILTIAZEM HCL CD 240 MG PO SCH (18:02)
[2019-05-01] MEDS: WARFARIN SODIUM 1 MG TABLET PO SCH (18:05)
--- NOTE | 2019-05-01 18:30 | NUR ---
MS RN NOTE: REPORT GIVEN TO GUSTAVO TAYLOR AT [facility]
[2019-05-01] MEDS ORDERED: HYDROCODONE/APAP 5/325MG 1 EACH TABLET PO PRN (18:55)
[2019-05-01] MEDS ORDERED: METOPROLOL TARTRATE 50 MG TABLET PO STA ×2 (18:59→19:04)
--- NOTE | 2019-05-01 19:10 | NUR ---
PATIENT DISCHARGE HELD ,PATIENT ANXIUOS HR 130'S,KONSTANTIN MARTINS TALKING TO PATIENT AND REASSURING ABOUT DISCHARGE.PATIENT INSISTED SHE DON'T FEEL GOOD.KONSTANTIN MARTINS ORDERED TELE AND UNCONTROLLED AFIB ON MONITOR.HELD DISCHARGE WITH NEW ORDERS LEFT AND CARRIED OUT PER DR. KONSTANTIN MARTINS.
--- NOTE | 2019-05-01 19:40 | NUR ---
DIRECTOR OF DIETARY CLOSING NOTE: PATIENT'S DISCHARGE WAS HELD AND LEVEL OF CARE IS NOW AT TELEMETRY. AT 1645 DURING MAINTENANCE SERVICE SUPERVISOR PATIENT'S HEART RATE WAS IN THE 120S AND WAS SEEN BY KONSTANTIN MARTINS DNP. DUE TO PATIENT'S HX OF UNCONTROLLED A. FIB AND VOCALIZATION OF NOT FEELING WELL, IT WAS DECIDED THAT SHE WILL BE MONITORED FURTHER WITH NEW ORDERS NOTED AND CARRIED OUT. PATIENT IN BED. ALERT, AWAKE AND ORIENTED X4. PERIODS OF CONFUSION NOTED ON SHIFT. ABLE TO MAKE NEEDS KNOWN. ON CONT. O2 VIA NC @3LPM AND TOLERATING WELL WITH SATURATION AT 97%, NO SOB AND NO RESPIRATORY DISTRESS NOTED. KARLOS MIDLINE INTACT, PATENT, CLEAN AND DRY. HOB ELEVATED, SITTER WILL BE PROVIDED ON THE NEXT SHIFT. AFEBRILE, SKIN WARM TO TOUCH, SKIN TREATMENT DONE, TURNED AND REPOSITIONED Q2HRS AND PRN. COMPLAINTS OF GENERALIZED PAIN NOTED AND ACETAMINOPHEN 1000MG Q 6H PO OFFERED AND GIVEN AND PATIENT IS REQUESTING NORCO FOR PAIN RELIEF, HOSPITALISTS AWARE OF PATIENT'S REQUEST.CALL LIGHT IN REACH, SIDE RAILS UP. BED LOCKED, LOW AND AT SEMI-TYLER'S POSITION. ENDORSED TO ONCOMING SHIFT FOR HUMBERTO.
[2019-05-01 20:00] VITALS: BP 145/71
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
--- NOTE | 2019-05-01 21:11 | NUR ---
patient's potassium is 5.7 DR Rk Quigley notified and no new orders for now . per dr will endorse to morning shift to F/U with it.
--- NOTE | 2019-05-01 21:30 | NUR ---
RN NOTES CALLED MD KONSTANTIN MARTINS ABOUT PATIENT'S POTASSIUM LEVEL BEING 5.7 AND PER MD MARTINS IT WAS NOT HIGH TO TREAT WILL REPEAT BLOOD TEST IN AM. WILL CONTINUE TO MONITOR PATIENT CLOSELY.
[2019-05-02] VITALS: BP 120/71
[2019-05-02] MEDS: METOPROLOL TARTRATE 25 MG TABLET PO SCH ×4 (00:45→18:13)
[2019-05-02] MEDS: ACETAMINOPHEN ES 500 MG TABLET PO PRN ×3 (02:03→21:54)
[2019-05-02] MEDS: IPRATROPIUM NEB FS 0.5 MG/2.5 ML AMPUL.NEB NEB SCH ×5 (03:30→20:18)
[2019-05-02] MEDS: ALBUTEROL FS 2.5 MG/3 ML VIAL.NEB NEB SCH ×6 (03:30→20:18)
[2019-05-02 04:00] VITALS: BP 130/83
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
[2019-05-02 07:18] LABS: CARBON DIOXIDE 36 mmol/L (21-32); CHLORIDE 101 mmol/L (98-107); CREATININE 0.8 mg/dL (0.6-1.3); GLUCOSE 90 mg/dL (74-106); POTASSIUM 5.5 mmol/L (3.5-5.1); SODIUM SERUM 139 mmol/L (136-145); UREA NITROGEN, BLOOD 33 mg/dL (7-18)
[2019-05-02 08:00] VITALS: BP 140/86
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
[2019-05-02] MEDS ORDERED: METOPROLOL TARTRATE 50 MG TABLET PO SCH ×2 (09:00)
[2019-05-02] MEDS: DOCUSATE SODIUM 100 MG CAPSULE PO SCH ×2 (09:00→09:30)
[2019-05-02] MEDS: POTASSIUM CHLORIDE 10 MEQ TABLET.SA PO SCH (09:00)
[2019-05-02] MEDS: DOXYCYCLINE HYCLATE (100 MG) 100 MG TABLET PO SCH ×2 (09:30→18:13)
[2019-05-02] MEDS: LEVOTHYROXINE SODIUM 50 MCG TABLET PO SCH (09:30)
[2019-05-02] MEDS: FUROSEMIDE 40 MG TABLET PO SCH (09:30)
[2019-05-02] MEDS: DIVALPROEX SODIUM 125 MG CAP.SPRINK PO SCH ×2 (09:30→20:26)
[2019-05-02] MEDS: predniSONE 20 MG TABLET PO SCH (09:31)
[2019-05-02] MEDS: CEFUROXIME AXETIL 250 MG TABLET PO SCH ×2 (09:31→18:10)
[2019-05-02] MEDS: risperiDONE 0.25 MG TABLET PO SCH ×2 (09:31→20:27)
[2019-05-02] MEDS: LACTOBACILLUS RHAMNOSUS GG 1 EACH CAP.SPRINK PO SCH ×2 (09:31→18:10)
[2019-05-02] MEDS ORDERED: SODIUM POLYSTYRENE SULFONATE 15 G/60 ML BOTTLE PO ONE (11:30)
[2019-05-02 12:00] VITALS: BP 121/91
--- NOTE | 2019-05-02 12:00 | NUR ---
TELE1/RN ROUNDS - Dav MOSES DNP UPDATED PT'S CONDITION, PT SEEN & EXAMINED BY JUWAN. AURELIA. NO NEW ORDERS RECEIVED AT THIS TIME.
[2019-05-02] MEDS: SILVER SULFADIAZINE CREAM 25 GM TUBE TP SCH (12:40)
[2019-05-02 16:00] VITALS: BP 124/79
[2019-05-02] MEDS: WARFARIN SODIUM 1 MG TABLET PO SCH (18:12)
[2019-05-02] MEDS: DILTIAZEM HCL CD 240 MG PO SCH (18:13)
--- NOTE | 2019-05-02 19:00 | NUR ---
furnace roaster opening notes received patient in bed awake alert and oriented x2 noted forgetful, on 2 l via nc respirations even and unlabored at this time.right upper arm midline intact and patent, sl, no redness, no infiltration present, on cardiac tele monitor controlled a.fib , no distress present, oriented to staff and call light and kept within reach, safety precautions in place, low bed and locked, all needs attended at this time, will continue to monitor and attend to needs.
--- NOTE | 2019-05-02 19:45 | NUR ---
TELE1/RN AM SHIFT END NOTES ALL NEEDS MET, NO ACUTE CHANGE OF CONDITION NOTED DURING THE SHIFT. PT ENDORSED TO PM NURSE TO CONTINUE CARE. CL WITHIN REACHED AND SAFETY MAINTAINED.
[2019-05-02 20:00] VITALS: BP 126/69
--- NOTE | 2019-05-02 21:54 | NUR ---
niles ms notes patient complaint of pain to lower legs states 12/12 requesting for pain medication tylenol prn as ordered for pain given, vs wnl , will continue to monitor for effectiveness. Addendum: 05/02/19 at 2236 by JALEN HINKLE RN clarification c/o 02/11
[2019-05-03] VITALS: BP 91/57
[2019-05-03] MEDS: IPRATROPIUM NEB FS 0.5 MG/2.5 ML AMPUL.NEB NEB SCH ×5 (00:04→15:19)
[2019-05-03] MEDS: ALBUTEROL FS 2.5 MG/3 ML VIAL.NEB NEB SCH ×6 (00:04→15:27)
[2019-05-03 04:55] VITALS: BP 93/56
[2019-05-03] MEDS: METOPROLOL TARTRATE 25 MG TABLET PO SCH ×4 (05:04→17:01)
--- NOTE | 2019-05-03 06:28 | NUR ---
double corner cutter closing notes patient in bed awake alert and oriented x2 noted forgetful with episodes of yelling, on 2 l via nc respirations even and unlabored at this time.right upper arm midline intact and patent, sl, no redness, no infiltration present, on cardiac tele monitor controlled a.fib 75, no distress present, call light kept within reach, safety precautions in place, low bed and locked, all needs attended at this time, will continue to monitor and attend to needs, patient repositioned, kept clean affected wound sites offloaded. will continue to monitor and endorse to next shift.
--- NOTE | 2019-05-03 07:45 | NUR ---
RN OPENING NOTES RECEIVED PT ON BED, ALERT, AWAKE. ABLE TO STATE NAME, PLACE WHERE SHE IS NOW BUT NOT TIME AND DAY.VERBALLY RESPONSIVE AND ABLE TO MAKE NEEDS KNOWN. COMPLAIN OF PAIN BUT CANNOT DESCRIBE AND POINT THE LOCATION. NO SOB NOTED, WITH SALINE LOCK ON KARLOS, INTACT, PATENT AND FLUSH WELL. BED IN LOW POSITION , LOCKED AND CALL LIGHT WITHIN REACH.
[2019-05-03 07:49] LABS: CALCIUM, SERUM 7.6 mg/dL (8.5-10.1); CREATININE 0.7 mg/dL (0.6-1.3); POTASSIUM 4.5 mmol/L (3.5-5.1)
[2019-05-03] MEDS: LEVOTHYROXINE SODIUM 50 MCG TABLET PO SCH (07:59)
[2019-05-03 08:00] VITALS: BP 136/73
[2019-05-03] MEDS: DIVALPROEX SODIUM 125 MG CAP.SPRINK PO SCH (08:21)
[2019-05-03] MEDS: FUROSEMIDE 40 MG TABLET PO SCH (08:22)
[2019-05-03] MEDS: DOCUSATE SODIUM 100 MG CAPSULE PO SCH (08:22)
[2019-05-03] MEDS: predniSONE 20 MG TABLET PO SCH (08:22)
[2019-05-03] MEDS: POTASSIUM CHLORIDE 10 MEQ TABLET.SA PO SCH (08:22)
[2019-05-03] MEDS: LACTOBACILLUS RHAMNOSUS GG 1 EACH CAP.SPRINK PO SCH ×2 (08:22→16:01)
[2019-05-03] MEDS: DOXYCYCLINE HYCLATE (100 MG) 100 MG TABLET PO SCH ×2 (08:22→16:01)
[2019-05-03] MEDS: CEFUROXIME AXETIL 250 MG TABLET PO SCH ×2 (08:23→16:02)
[2019-05-03] MEDS: SILVER SULFADIAZINE CREAM 25 GM TUBE TP SCH (08:24)
[2019-05-03] MEDS: risperiDONE 0.25 MG TABLET PO SCH (08:26)
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
[2019-05-03 12:00] VITALS: BP 135/78
[2019-05-03] MEDS ORDERED: ZOLPIDEM TARTRATE 5 MG TABLET PO PRN (12:30)
[2019-05-03] MEDS ORDERED: HYDROCODONE/APAP 5/325MG 1 EACH TABLET PO PRN (12:30)
[2019-05-03] MEDS: ACETAMINOPHEN ES 500 MG TABLET PO PRN (14:16)
--- NOTE | 2019-05-03 15:45 | NUR ---
TELE1/RN REPORT - SNF REPORT GIVEN TO NURSE DUMONT FOR PT TO BE DISCHARGE. SCHEDULED TRANSPORT @ 1600.
[2019-05-03 16:00] VITALS: BP_SYST 160; BP_DIAS 60; BP_DIAS 76
[2019-05-03] MEDS: WARFARIN SODIUM 1 MG TABLET PO SCH (16:09)
--- NOTE | 2019-05-03 17:00 | NUR ---
TELE1/CARTON FILLER TO SNF DISCHARGE REPORT AND DOCUMENTS GIVEN TO TRANSPORT PERSONNEL. IV SITE REMOVED, PRESSURE DRESSING APPLIED, NO S/S OF INFECTION. ID BAND REMOVED. PERSONAL BELONGINGS RETURNED, INVENTORY LOG SIGNED OFF. PT LEFT TELE1 UNIT VIA GURNEY IN STABLE CONDITION.
[2019-05-03 17:01] VITALS: BP 160/76
[2019-05-03] MEDS: DILTIAZEM HCL CD 240 MG PO SCH (17:01)
== END 2019-05-03 17:00 | DRG 193 ==
LOC: ER 15:13 → TELE-TD 19:30 → TELE1 20:04 → MEDSG1 04-29 12:11 → TELE1 05-01 19:27
PROVIDERS: ADMIT Hospitalist; ATTEND Hospitalist
PROC: 05H633Z Insertion of Infusion Device into Left Subclavian Vein, Percutaneous Approach (ICD-10-PCS; principal; 2019-04-28)
PROC: B547ZZA Ultrasonography of Left Subclavian Vein, Guidance (ICD-10-PCS; 2019-04-28)
PROC: 05H533Z Insertion of Infusion Device into Right Subclavian Vein, Percutaneous Approach (ICD-10-PCS; 2019-04-29)
PROC: B546ZZA Ultrasonography of Right Subclavian Vein, Guidance (ICD-10-PCS; 2019-04-29)
DX: J15.9 Unspecified bacterial pneumonia (principal); E43 Unspecified severe protein-calorie malnutrition; J44.1 Chronic obstructive pulmonary disease with (acute) exacerbation; J44.0 Chronic obstructive pulmonary disease with (acute) lower respiratory infection; E66.2 Morbid (severe) obesity with alveolar hypoventilation; I50.32 Chronic diastolic (congestive) heart failure; D68.9 Coagulation defect, unspecified; I11.0 Hypertensive heart disease with heart failure; I48.91 Unspecified atrial fibrillation; E03.9 Hypothyroidism, unspecified; M19.90 Unspecified osteoarthritis, unspecified site; K74.60 Unspecified cirrhosis of liver; Z95.2 Presence of prosthetic heart valve; D69.2 Other nonthrombocytopenic purpura; I25.10 Atherosclerotic heart disease of native coronary artery without angina pectoris; F03.90 Unspecified dementia, unspecified severity, without behavioral disturbance, psychotic disturbance, mood disturbance, and anxiety; E87.5 Hyperkalemia; I87.2 Venous insufficiency (chronic) (peripheral); E88.09 Other disorders of plasma-protein metabolism, not elsewhere classified; S80.12XA Contusion of left lower leg, initial encounter; S80.11XA Contusion of right lower leg, initial encounter; S40.022A Contusion of left upper arm, initial encounter; S40.021A Contusion of right upper arm, initial encounter; X58.XXXA Exposure to other specified factors, initial encounter; Y93.9 Activity, unspecified; Y92.129 Unspecified place in nursing home as the place of occurrence of the external cause; Z90.710 Acquired absence of both cervix and uterus; Z79.01 Long term (current) use of anticoagulants; Z68.33 Body mass index [BMI] 33.0-33.9, adult; T45.515A Adverse effect of anticoagulants, initial encounter; S51.812A Laceration without foreign body of left forearm, initial encounter; S51.811A Laceration without foreign body of right forearm, initial encounter; S51.011A Laceration without foreign body of right elbow, initial encounter; S61.412A Laceration without foreign body of left hand, initial encounter; S61.411A Laceration without foreign body of right hand, initial encounter; S80.222A Blister (nonthermal), left knee, initial encounter; S90.425A Blister (nonthermal), left lesser toe(s), initial encounter; S80.821A Blister (nonthermal), right lower leg, initial encounter; F51.04 Psychophysiologic insomnia
CPT/HCPCS: 36415; 36600; 71045-TC; 80048-TC; 80053-TC; 80061-TC; 80076-TC; 80202-TC; 81000-TC; 83605-TC; 83735-TC; 83880; 84100-TC; 84439-TC; 84443-TC; 84484-TC; 85025-TC; 85610-TC; 85730-TC; 87040-TC; 87081-TC; 87086-TC; 94799-TC; A6253; A6403; G0378; J2270; J2405; J2543; J2920; J2930; J3370; J3430; J7050; J7060